=== PATIENT | male | born 1990 | race Caucasian/White ===

== ENCOUNTER 2022-06-17 22:31 | Inpatient (IN) ==
[2022-06-17] MEDS ORDERED: ALUMINUM/MAGNESIUM SUSP 30 ML UDC PO STA (22:38)
--- NOTE | 2022-06-17 22:39 | Emergency Department Note ---
Impression & Plan Chest pain, COVID-19, Gall stones, Acute cholecystitis ED Provider Note NAME: KARTHIKEYAN [id number] MARY AGE: 32 SEX: M : 1990 ARRIVES VIA: Ambulance INFORMANT: Patient, ED PROVIDER(S): Gilmer Hare DO CHIEF COMPLAINT: Chest pain HPI: The patient is a 32-year-old male who presented to the emergency department for an evaluation of chest pain. The patient states that for the last 2 to 3 days he has had URI symptoms including cough and headache. The patient states he started noticing chest discomfort this evening approximately 2 hours ago. He states he has a slight cough which is nonproductive. He denies having any he moptysis. He denies having any black or bloody bowels. He denies having any abdominal pain. He states that he has had some nausea. He said no sick contacts as far as he knows. He has been taking all his medications as prescribed. He does have a history of hypertension. The patient was given a spirin and nitroglycerin at the [facility]. He states he had no change in the pain. ROS: See above HPI for pertinent positives & negatives. A total of 10 systems reviewed and were otherwise negative. PAST MEDICAL HISTORY: See Below PAST SURGICAL HISTORY: See Below FAMILY HISTORY: See Below SOCIAL HISTORY: See Below HOME MEDICATIONS: See Below ALLERGIES: See Below VITALS: See Below PHYSICAL EXAMINATION: GENERAL: Patient is awake alert in no acute distress patient is resting comfortably and showing no signs of anxiety EYES: The conjunctivae are clear. The pupils are round and reactive. EARS, NOSE, MOUTH AND THROAT: The nose is without any evidence of any deformity. Mucous membranes are moist. Tongue is midline. NECK: The neck is nontender and supple. RESPIRATORY: Normal respiratory effort is noted there is no evidence of wheezing rhonchi or rales CARDIOVASCULAR: Regular rate and rhythm noted there no murmurs rubs or gallops normal S1 normal S2. GASTROINTESTINAL: The abdomen is soft and nondistended. There is tenderness palpation over the upper abdomen as well as the lower chest wall. The patient states this is the pain that brought him to the emergency department today. MUSCULOSKELETAL/EXTREMITIES: There is no evidence of gross deformity full range of motion is noted in the hips and shoulders. SKIN: There is no obvious evidence of any rash. There are no petechiae, pallor or cyanosis noted. There is no calf tenderness. NEUROLOGIC: Patient is awake alert and oriented x3 strength is symmetric patellar reflexes are 2+ bilaterally MEDICAL DECISION MAKING: Patient is a 32-year-old male who presented to the emergency department for an evaluation of chest pain. The patient was found to have an elevated temperature. His cardiac work-up did not appear to be consistent with acute coronary syndrome with no acute ischemic changes on EKG and a negative troponin. He was found to have abdominal pain as well on physical exam. I discussed the patient's laboratory and radiographic studies with him. CT of the chest abdomen pelvis were obtained without contrast. The chest showed no acute disease ho wever the abdomen did appear to be consistent with cholecystitis. He did have a slight elevation in his bilirubin but otherwise LFTs were normal. Given the patient's presentation I discussed this case with the on-call [facility] hospitalist. The on-call general surgeon was also consulted. Patient was treated with IV antibiotics in the emergency department. Triage Nursing notes reviewed. Prior medical records reviewed Vital Signs: reviewed and remarkable for elevated blood pressure. Differential diagnosis: Cardiac ischemia, aortic dissection, pulmonary embolism, pneumothorax, pneumonia, pericarditis, myocarditis, esophageal rupture, GERD, cholecystitis, pancreatitis, musculoskeletal, as well as other pathologies. ER treatment provided: See below Diagnostics interpreted by me: ECG: EKG was obtained in the emergency department. My interpretation is normal sinus rhythm at 84 bpm. There is no ectopy. There is no acute ST segment abnormalities noted. No previous tracing was available. An EKG from the [facility] was evaluated. This appears to be consistent with n ormal sinus rhythm at 86 bpm. There were some baseline artifact however there was no acute ST segment abnormalities noted. There is no ectopy. A prehospital EKG was obtained prior to arrival. My interpretation is normal sinus rhythm at 84 bpm. There is no ectopy. There is no acute ST segment a bnormalities noted. Cardiac Monitoring: An order was placed for continuous cardiac monitoring. The monitor shows a rate of 83 bpm with sinus rhythm. Laboratory studies: [As stated above and show below.] Imaging studies: [See below] Consultation(s): I discussed this case with Dr Brandon Discussed this case with Dr. Ware on-call for general surgery. Past Med/Surg History Medical History Hypertension Surgical History History of appendectomy Social History Smoking Status: Former smoker Preferred Language: Prydeinig Results & Data (ED) Vital Signs Vital Signs - 24 hr 06/17/22 22:18 06/17/22 22:44 06/17/22 22:50 Temperature 37.8 C H Temperature Source Oral Pulse Rate 85 Respiratory Rate 20 Blood Pressure 180/108 H Blood Pressure Mean 132 Pulse Oximetry 98 97 97 Oxygen Delivery Method Room Air Room Air Room Air Sepsis Recent Fever Within 48 Hours No Sepsis New/Unexplained Change in Mental Status No Sepsis Action Taken by Nursing No Action Required 06/17/22 23:00 06/17/22 23:30 06/18/22 00:03 Temperature Temperature Source Pulse Rate 84 85 84 Respiratory Rate 20 20 20 Blood Pressure 201/103 H 211/105 H 181/107 H Blood Pressure Mean 135 140 131 Pulse Oximetry 96 97 97 Oxygen Delivery Method Sepsis Recent Fever Within 48 Hours Sepsis New/Unexplained Change in Mental Status Sepsis Action Taken by Nursing 06/18/22 00:30 06/18/22 01:00 06/18/22 01:30 Temperature Temperature Source Pulse Rate 83 83 82 Respiratory Rate 20 20 18 Blood Pressure 177/100 H 175/99 H 168/98 H Blood Pressure Mean 125 124 121 Pulse Oximetry 98 97 97 Oxygen Delivery Method Sepsis Recent Fever Within 48 Hours Sepsis New/Unexplained Change in Mental Status Sepsis Action Taken by Group Home Medications Current Medication List: was personally reviewed by me Laboratory Data Attestation: I reviewed the patient's lab results. Result diagrams: 06/17/22 22:45 06/17/22 22:45 Lab Results 06/17/22 06/17/22 06/17/22 Range/Units 22:45 22:45 22:45 WBC 6.38 (4.8-10.8) K/ul RBC 5.24 (4.63-6.08) M/uL Hgb 15.8 (14.0-18.0) g/dl Hct 43.8 (40.1-51.0) % MCV 83.6 (80.0-100.0) fL MCH 30.2 (25.0-34.0) pg MCHC 36.1 H (32.0-36.0) g/dL RDW Std Deviation 35.8 L (36.4-46.3) fL RDW Coeff of Bipin 11.9 (11.5-14.5) % Plt Count 151 (130-400) K/uL MPV 10.1 (9.4-12.4) fL Immature Gran % (Auto) 0.2 % Neut % (Auto) 75.0 % Lymph % (Auto) 10.7 % [place] % (Auto) 13.6 % Eos % (Auto) 0.3 % Baso % (Auto) 0.2 % Neut # (Auto) 4.79 (1.4-6.5) K/uL Lymph # (Auto) 0.68 L (1.2-3.4) K/uL [place] # (Auto) 0.87 H (0.24-0.82) K/uL Eos # (Auto) 0.02 (0-0.50) K/uL Baso # (Auto) 0.01 (0-0.2) K/uL Immature Gran # (Auto) 0.01 (0.00-0.02) K/uL PT 10.4 (9.0-12.0) Seconds INR 1.0 (0.9-1.1) APTT 30.1 (21.0-31.0) Seconds PTT Ratio 1.1 Sodium 136 (136-145) mmol/L Potassium 3.8 (3.5-5.1) mmol/L Chloride 102 (98-107) mmol/L Carbon Dioxide 26 (21-32) mmol/L Anion Gap 8 (3-11) BUN 16 (6-23) mg/dl Creatinine 0.98 (0.6-1.4) mg/dl Est Cr Clr Drug Dosing 151.5 ml/min Est GFR ( Amer) 116.9 ml/min Est GFR (Non-Af Amer) 100.9 ml/min BUN/Creatinine Ratio 16.3 (10-20) Glucose 128 H (70-99(Fasting)) mg/dl Calcium 8.7 (8.5-10.1) mg/dl Total Bilirubin 1.1 H (0.2-1.0) mg/dl AST 21 (13-39) U/L ALT 18 (7-52) U/L Alkaline Phosphatase 65 (34-104) U/L Troponin I High Sens 4.8 (0-20) pg/ml Total Protein 7.4 (6.0-8.3) gm/dl Albumin 4.4 (3.4-5.0) gm/dl Globulin 3.0 (2.5-4.0) gm/dl Albumin/Globulin Ratio 1.5 (0.9-2) Lipase 20 (11-82) U/L SARS-CoV-2 (PCR) (Negative) Influenza Type A (PCR) (Neg) Influenza Type B (PCR) (Neg) RSV (RT-PCR) (Neg) 06/17/22 Range/Units 22:50 WBC (4.8-10.8) K/ul RBC (4.63-6.08) M/uL Hgb (14.0-18.0) g/dl Hct (40.1-51.0) % MCV (80.0-100.0) fL MCH (25.0-34.0) pg MCHC (32.0-36.0) g/dL RDW Std Deviation (36.4-46.3) fL RDW Coeff of Bipin (11.5-14.5) % Plt Count (130-400) K/uL MPV (9.4-12.4) fL Immature Gran % (Auto) % Neut % (Auto) % Lymph % (Auto) % [place] % (Auto) % Eos % (Auto) % Baso % (Auto) % Neut # (Auto) (1.4-6.5) K/uL Lymph # (Auto) (1.2-3.4) K/uL [place] # (Auto) (0.24-0.82) K/uL Eos # (Auto) (0-0.50) K/uL Baso # (Auto) (0-0.2) K/uL Immature Gran # (Auto) (0.00-0.02) K/uL PT (9.0-12.0) Seconds INR (0.9-1.1) APTT (21.0-31.0) Seconds PTT Ratio Sodium (136-145) mmol/L Potassium (3.5-5.1) mmol/L Chloride (98-107) mmol/L Carbon Dioxide (21-32) mmol/L Anion Gap (3-11) BUN (6-23) mg/dl Creatinine (0.6-1.4) mg/dl Est Cr Clr Drug Dosing ml/min Est GFR ( Amer) ml/min Est GFR (Non-Af Amer) ml/min BUN/Creatinine Ratio (10-20) Glucose (70-99(Fasting)) mg/dl Calcium (8.5-10.1) mg/dl Total Bilirubin (0.2-1.0) mg/dl AST (13-39) U/L ALT (7-52) U/L Alkaline Phosphatase (34-104) U/L Troponin I High Sens (0-20) pg/ml Total Protein (6.0-8.3) gm/dl Albumin (3.4-5.0) gm/dl Globulin (2.5-4.0) gm/dl Albumin/Globulin Ratio (0.9-2) Lipase (11-82) U/L SARS-CoV-2 (PCR) POSITIVE A* (Negative) Influenza Type A (PCR) Negative (Neg) Influenza Type B (PCR) Negative (Neg) RSV (RT-PCR) Negative (Neg) Administered Medications Cefoxitin Sodium (Mefoxin) 2,000 mg in 60 mls @ 100 mls/hr IV NOW STA Stop: 06/18/22 01:40 Last Admin: 06/18/22 01:29 Dose: 100 mls/hr Documented By: MELISSA Discontinued Medications Al Hydrox/Mg Hydrox/Simethicone (Aluminum/Magnesium Susp 30 Ml Udc) 30 ml PO NOW STA Stop: 06/17/22 22:39 Last Admin: 06/17/22 23:13 Dose: 30 ml Documented By: MELISSA Imaging Data Attestation: I personally reviewed and interpreted this imaging study as follows: My Impression: No death1 view chest x-ray was obtained in the emergency department. My interpretation is an infiltrate, no free air, there was shadowing of gastric air noted in the left upper quadrant which could be into the left chest. CT of the chest abdomen and pelvis will be obtained. Radiologist's Impression: Patient: KARTHIKEYAN HERNANDEZ [id number] (Male) : 88 Status: ER Date: 06/18/22 00:14 Room #: History: PT. REPORTS UPPER ABDOMINAL PAIN THAT RADIATES INTO LOW STERNAL CHEST PAIN APPENDIX NOT PRESENT Slices: [phone] Priors: Tech: Jahaira Law @ [phone] Exams: CT ABDOMEN & PELVIS Without Contrast Contrast: Accession Numbers: [id number] Referring Physician: JOCELYN PETIT Preliminary Findings Only See Final Report For Complete Findings CT ABDOMEN & PELVIS Without Contrast: Please see chest CT also today regarding thoracic findings Gallstone within mildly distended gallbladder and surrounding fat stranding. Findings may represent acute cholecystitis. No obvious biliary dilation. Pancreas appears normal. No obstructing urinary tract calculus or hydronephrosis. A normal-appearing short retrocecal appendix or appendiceal stump is visualized. Somewhat limited evaluation of the colon with areas of nondistention. No free air, free fluid or bowel obstruction. Small fat-containing umbilical and inguinal hernias Radiologist: Yuli Perez M.D. Study ready at 00:24 and initial results transmitted at 01:01 Patient: KARTHIKEYAN HERNANDEZ [id number] (Male) : 88 Status: ER Date: 06/18/22 00:12 Room #: History: PT. REPORTS UPPER ABDOMINAL PAIN THAT RADIATES INTO LOW STERNAL CHEST PAIN Slices: [phone] Priors: Tech: Jahaira Law @ [phone] C Exams: CT CHEST Without Contrast Contrast: Accession Numbers: [id number] Referring Physician: JOCELYN PETIT Preliminary Findings Only See Final Report For Complete Findings CT CHEST Without Contrast: Please see CT abdomen pelvis also today for abdominal findings. No aortic aneurysm. Limited evaluation on noncontrast study. Variant anatomy: aberrant right subclavian artery Lungs clear No fracture or other significant bony abnormality Radiologist: Yuli Perez M.D. Study ready at 00:21 and initial results transmitted at 00:58 Discharge Plan Visit Data Chief Complaint: Chest Pain ED Provider: Gilmer Hare Discharge Problem: Chest pain, COVID-19, Gall stones, Acute cholecystitis Patient Disposition: Being Evaluated by Hospitalist Condition: Good Discharge Instructions Krames/Other Patient Handouts: COVID-19 Home Care Activity Restrictions/Additional Instructions: Continue all medications as prescribed. Continue to use Motrin and Tylenol directed for fever and pain. Your CAT scan did show that you may have some gallstones. I do not feel this is causing your pain this evening but you may require referral to a general surgeon in the future to evaluate this finding further. Continue to isolate and keep yourself away from other people until your symptoms have resolved. Forms Stand Alone Forms: My [facility] Referrals Referrals: Jocelyn PETIT [Primary Care Provider] - : Chest pain Qualifiers: Chest pain type: unspecified Qualified Code(s): R07.9 - Chest pain, unspecified
[2022-06-17 22:58] LABS: Basophils # (auto) 0.01 K/uL (0-0.2); Basophils % (auto) 0.2 %; Eosinophils # (auto) 0.02 K/uL (0-0.50); Eosinophils % (auto) 0.3 %; Hematocrit (blood only) 43.8 % (40.1-51.0); Hemoglobin 15.8 g/dl (14.0-18.0); Immature Granulocytes # (auto) 0.01 K/uL (0.00-0.02); Immature Granulocytes % (auto) 0.2 %; Lymphocytes # (auto) 0.68 K/uL (1.2-3.4); Lymphocytes % (auto) 10.7 %; Mean Corpuscular Hemoglobin 30.2 pg (25.0-34.0); Mean Corpuscular Hgb Conc 36.1 g/dL (32.0-36.0); Mean Corpuscular Volume 83.6 fL (80.0-100.0); Mean Platelet Volume 10.1 fL (9.4-12.4); Monocytes # (auto) 0.87 K/uL (0.24-0.82); Monocytes % (auto) 13.6 %; Neutrophils # (auto) 4.79 K/uL (1.4-6.5); Platelet Count 151 K/uL (130-400); RDW Coefficient of Variation 11.9 % (11.5-14.5); RDW Standard Deviation 35.8 fL (36.4-46.3); Red Blood Count 5.24 M/uL (4.63-6.08); White Blood Count 6.38 K/ul (4.8-10.8)
[2022-06-17 23:17] LABS: Albumin Globulin Ratio 1.5 (0.9-2); Albumin Level 4.4 gm/dl (3.4-5.0); BUN Creatinine Ratio 16.3 (10-20); Bilirubin,Total 1.1 mg/dl (0.2-1.0); Calcium 8.7 mg/dl (8.5-10.1); Creatinine Clr Calc Pharmacy 151.5 ml/min; Est GFR (African American) 116.9 ml/min; Est GFR (Non-African American) 100.9 ml/min; Potassium 3.8 mmol/L (3.5-5.1); Total Protein 7.4 gm/dl (6.0-8.3)
[2022-06-17 23:23] LABS: Troponin I High Sensitivity 4.8 pg/ml (0-20)
[2022-06-17 23:25] LABS: Partial Thromboplastin Ratio 1.1; Partial Thromboplastin Time 30.1 Seconds (21.0-31.0); Prothrombin Time 10.4 Seconds (9.0-12.0)
[2022-06-17 23:43] LABS: Influenza A virus by PCR Negative (Neg); Influenza B virus by PCR Negative (Neg); RSV by PCR Negative (Neg)
[2022-06-17 23:46] LABS: SARS CoV2 RNA(COVID-19) InHosp POSITIVE (Negative)
[2022-06-18] MEDS ORDERED: cefOXitin 2,000 MG/60 ML BAG IV STA (01:05)
--- NOTE | 2022-06-18 02:16 | Surgery Consultation ---
Date of Consultation June 18, 2022 Assessment & Plan (1) Gall stones: pt is a 32 year-old male who presents to ER with cough chest pain, pt had CT scan- gallstone, IMP: gallstone, COVID+ plan, medicine admit pt to hospital, conservative treatment, please order MRCP, consult GI, repeat labs in morning, no emergent surgery indication now, will F/U, History of Present Illness Reason for Consultation: gallstone Requesting Physician: Gilmer Hare DO History of Present Illness CHIEF COMPLAINT: Chest pain HPI: The patient is a 32-year-old male who presented to the emergency department for an evaluation of chest pain. The patient states that for the last 2 to 3 days he has had URI symptoms including cough and headache. The patient states he started noticing chest discomfort this evening approximately 2 hours ago. He states he has a slight cough which is nonproductive. He denies having any hemoptysis. He denies having any black or bloody bowels. He denies having any abdominal pain. He states that he has had some nausea. He said no sick contacts as far as he knows. He has been taking all his medications as prescribed. He does have a history of hypertension. The patient was given aspirin and nitroglycerin at the [facility]. He states he had no change in the pain. I ( Natasha Ware MD) got a call for consult gallstone, I reviewed pt's H/P, labs, CT scan with pt, ROS: See above HPI for pertinent positives & negatives. A total of 10 systems reviewed and were otherwise negative. Allergies Allergy/AdvReac Type Severity Reaction Status Date / Time No Known Allergies Allergy Unverified 06/18/22 01:59 Home Medications Medication Instructions Recorded Confirmed Type metoprolol tartrate 25 mg tablet 25 mg PO BID 06/18/22 06/18/22 History Patient History Medical History Hypertension Surgical History History of appendectomy Social History Smoking Status: Former smoker Preferred Language: Lao Review of Systems Constitutional: as per Subjective / HPI Eyes: as per Subjective / HPI Respiratory: as per Subjective / HPI Cardiovascular: as per Subjective / HPI Gastrointestinal: as per Subjective / HPI Genitourinary: + as per Subjective / HPI Neurologic: as per Subjective / HPI Psychiatric: as per Subjective / HPI Endocrine: as per Subjective / HPI Hematologic / Lymphatic: as per Subjective / HPI Physical Exam Constitutional: WD/WN, vitals as above no distress Eyes: PERRL, conjunctivae normal, anicteric sclerae Neck: trachea midline, no thyromegaly Respiratory: normal respiratory effort, lungs clear to auscultation Cardiovascular: RRR, no murmur, no edema Gastrointestinal (Abdomen): soft, mild tenderness at upper abdomen, left and right side, no rebound pain, no distend, BS +, Musculoskeletal: no cyanosis or clubbing, extremities motor strength 5/5 Neurologic: patellar DTR's 2+ bilat, sensation intact Psychiatric: A+Ox3, euthymic affect Results & Data ([facility]) Vital Signs (Past 12 Hours) Vital Signs Temp Pulse Resp BP Pulse Ox O2 Del Method 06/18/22 01:30 82 18 168/98 H 97 06/18/22 01:00 83 20 175/99 H 97 06/18/22 00:30 83 20 177/100 H 98 06/18/22 00:03 84 20 181/107 H 97 06/17/22 23:30 85 20 211/105 H 97 06/17/22 23:00 84 20 201/103 H 96 06/17/22 22:50 97 Room Air 06/17/22 22:44 97 Room Air 06/17/22 22:18 37.8 C H 85 20 180/108 H 98 Room Air Laboratory Results Abnormal lab results 06/17/22 06/17/22 06/17/22 Range/Units 22:45 22:45 22:50 MCHC 36.1 H (32.0-36.0) g/dL RDW Std Deviation 35.8 L (36.4-46.3) fL Lymph # (Auto) 0.68 L (1.2-3.4) K/uL [place] # (Auto) 0.87 H (0.24-0.82) K/uL Glucose 128 H (70-99(Fasting)) mg/dl Total Bilirubin 1.1 H (0.2-1.0) mg/dl SARS-CoV-2 (PCR) POSITIVE A* (Negative) Diagnostic Findings CT scan- gallstone
[2022-06-18] MEDS ORDERED: NITROGLYCERIN SL 0.4 MG/TAB TAB SL PRN (03:15)
[2022-06-18] MEDS ORDERED: HYDROmorphone INJ 0.5 MG/0.5 ML SYR IV PRN (03:15)
[2022-06-18] MEDS ORDERED: ACETAMINOPHEN 325 MG TAB PO PRN (03:15)
[2022-06-18] MEDS ORDERED: ONDANSETRON INJ 2 MG/ML 2 ML VIAL IV PRN (03:15)
[2022-06-18] MEDS ORDERED: PIPERACILLIN/TAZOBACTAM 4.5 GM in DEXTROSE 5% 100 ML IV ONE (03:30)
--- NOTE | 2022-06-18 06:13 | History and Physical Report ---
DATE OF ADMISSION: 06/18/2022. CHIEF COMPLAINT: Lower chest pain and abdominal pain. HISTORY OF PRESENT ILLNESS: A 32-year-old male with past medical history significant for hypertension, [facility] the [facility] with lower chest pain and epigastric abdominal pain starting tonight. Radiating pain to both shoulders and neck. It was 8/10 in severity and currently is 5/10. Nothing made it better or worse. No shortness of breath, no nausea, no headache, no blurred visions, no earache. Has some runny nose and cough for the last 2 days, had some mild temperature spike in the ER. No diarrhea or constipation. Normal bladder movements. Otherwise, he is ambulating okay. ALLERGIES: No known drug allergies. PAST MEDICAL HISTORY: As mentioned above. PAST SURGICAL HISTORY: Appendectomy. MEDICATIONS: Metoprolol tartrate 25 mg p.o. b.i.d. FAMILY HISTORY: Not on file. SOCIAL HISTORY: He states he smoked, last he smoked was in January. Last drank alcohol in January. Denies any drug use. REVIEW OF SYSTEMS: As per HPI. Rest of review of systems is negative. PHYSICAL EXAMINATION: GENERAL: The patient is obese, not in acute distress. VITAL SIGNS: Temperature 37.8, pulse 87, respiratory rate 18, blood pressure 166/97, oxygen 97% on room air. HEENT: Pupils equal, round and reactive to light. Oral mucosa moist. NECK: No JVD. No neck masses. CARDIOVASCULAR: S1 and S2 heard. Regular rate and rhythm. No murmur, no gallop. RESPIRATORY SYSTEM: Normal AP diameter. No accessory muscle use. No wheezing, no crackles. ABDOMEN: Soft, bowel sounds present. Tenderness in the epigastrium and right upper quadrant region. Mild guarding. No rigidity, no distention. CENTRAL NERVOUS SYSTEM: Cranial nerves II through XII are grossly intact, nonfocal. EXTREMITIES: No edema, no erythema. LABORATORY DATA: WBC 6.3, hemoglobin 15.8, hematocrit 43.8, platelets 151. PT 10.4, INR 1, APTT 30.1. Sodium 136, potassium 3.8, chloride 102, bicarbonate 26, BUN 16, creatinine 0.9, serum glucose 128, calcium 8.7, total bilirubin 1.1, AST 21, ALT 18, alkaline phosphatase 65. Troponin I high sensitivity 4.8. Lipase 20. SARS-CoV-2 PCR positive. Influenza A and B PCR negative. RSV PCR negative. Chest CT, preliminary report unremarkable. IMAGING DATA: CT of abdomen and pelvis, gallstones with a mildly distended gallbladder. Findings may represent acute cholecystitis. EKG: Normal sinus rhythm at a rate of 84, no previous ECGs available, no acute ST changes seen. ASSESSMENT AND PLAN: This is a 32-year-old male who presents with lower chest and abdominal pain and found to have acute cholecystitis and COVID. 1. Acute gallstone cholecystitis, started on Zosyn, IV fluids, n.p.o., IV Dilaudid p.r.n., IV Zofran p.r.n. ER consulted surgery. Monitor in the hospital. 2. Chest pain, most likely coming from the cholecystitis. We will follow serial enzymes and EKG. 3. History of hypertension: Continue metoprolol. 4. COVID, currently saturating okay on room air. CT chest preliminary report with no obvious lesions. We will monitor. The patient is unvaccinated. 5. Deep venous thrombosis prophylaxis: Sequential compression devices for now as may need procedure for cholecystitis. DISPOSITION: Admit to [facility]. PT/OT prior to discharge. Social service to help with discharge planning. Discharge back to [facility] when stable. Job ID: [id number] [facility]
[2022-06-18 07:18] LABS: Basophils # (auto) 0.01 K/uL (0-0.2); Basophils % (auto) 0.2 %; Eosinophils # (auto) 0.01 K/uL (0-0.50); Eosinophils % (auto) 0.2 %; Hematocrit (blood only) 42.2 % (40.1-51.0); Hemoglobin 15.3 g/dl (14.0-18.0); Immature Granulocytes # (auto) 0.02 K/uL (0.00-0.02); Immature Granulocytes % (auto) 0.4 %; Lymphocytes # (auto) 0.92 K/uL (1.2-3.4); Mean Corpuscular Hemoglobin 29.7 pg (25.0-34.0); Mean Corpuscular Hgb Conc 36.3 g/dL (32.0-36.0); Mean Corpuscular Volume 81.8 fL (80.0-100.0); Mean Platelet Volume 9.8 fL (9.4-12.4); Monocytes # (auto) 0.77 K/uL (0.24-0.82); Monocytes % (auto) 15.9 %; Neutrophils % (auto) 64.3 %; Platelet Count 142 K/uL (130-400); RDW Coefficient of Variation 11.9 % (11.5-14.5); RDW Standard Deviation 35.3 fL (36.4-46.3); Red Blood Count 5.16 M/uL (4.63-6.08); White Blood Count 4.83 K/ul (4.8-10.8)
[2022-06-18 07:38] LABS: Calcium 8.6 mg/dl (8.5-10.1); Creatinine Clr Calc Pharmacy 175.9 ml/min; Est GFR (African American) 132.1 ml/min; Est GFR (Non-African American) 113.9 ml/min; Potassium 3.5 mmol/L (3.5-5.1)
--- NOTE | 2022-06-18 07:59 | XRay Report ---
XR chest 1V portable CLINICAL HISTORY: Chest Pain TECHNIQUE: Single frontal radiograph of the chest was obtained. Comparison: None available at the time of this dictation. FINDINGS: No lines and tubes are seen. The cardiomediastinal silhouette is normal. The lungs are clear. No evid ence of pleural effusion or pneumothorax. IMPRESSION: No acute chest disease. ACT 112: Negative or not required by law. Electronically signed by: Gio Morris M.D. 06/18/2022 7:57 AM
--- NOTE | 2022-06-18 08:21 | CT Scan Report ---
CT abd pelvis wo con CLINICAL HISTORY: epigastric pain TECHNIQUE: Helical axial images of the abdomen and pelvis were obtained. Automated dose lowering tech niques and/or adjustment according to patient size were utilized for this exam. This exam was perfor med without intravenous contrast. CT DOSE: 2397.45 mGy.cm COMPARISON: None available at the time of this dictation. FINDINGS: Lower chest: For findings above the diaphragm, please see CT chest performed same day. Liver: Unremarkable. No focal lesions are seen. Gallbladder and biliary tree: A radiodense gallstone is partially visualized. There is gallbladder wa ll edema, and the wall measures approximately 6 mm in diameter. Surrounding fat stranding is seen. No intra- or extrahepatic biliary ductal dilation. Pancreas: Unremarkable, no focal lesions. Spleen: Splenule is incidentally noted. Adrenals: Unremarkable. Kidneys and ureters: Unremarkable. Bladder: Unremarkable. Reproductive organs: Unremarkable. Bowel: Unremarkable appearance of the bowel. The appendix is normal. Lymph nodes Retroperitoneal: Unremarkable. Pelvic: Unremarkable. Mesenteric: Unremarkable. Peritoneum: Normal. Vessels: Unremarkable. Abdominal wall: A fat-containing umbilical hernia is seen. Left greater than right fat-containing ing uinal hernias are seen. Bones: Unremarkable. IMPRESSION: Findings are compatible with acute cholecystitis. ACT 112: Negative or not required by law. Electronically signed by: Gio Morris M.D. 06/18/2022 8:20 AM
--- NOTE | 2022-06-18 08:34 | CT Scan Report ---
CT chest diagnostic wo con CLINICAL HISTORY: 32 years-old Male with upper pain. Acute lower chest with upper abdominal pain TECHNIQUE: Multiaxial CT images of the chest were performed without contrast. A dose lowering techni que was utilized adhering to the principles of ALARA. COMPARISON: CT abdomen and pelvis of same day FINDINGS: Unremarkable thyroid. There is no lymphadenopathy. The heart is normal in size without jazmyn cardial effusion. There is no thoracic aortic aneurysm. 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 No pneumothorax, pleural effusion, airspace consolidation or overt pulmonary edema. There are no susp icious pulmonary nodules or masses. The central airways are patent. Cholelithiasis with gallbladder wall thickening and pericholecystic fluid. The spleen limits of jay jay l in size. Unremarkable soft tissues. No acute fracture. IMPRESSION: 1. No acute intrathoracic abnormality. 2. Cholelithiasis with findings compatible with acute cholecystitis. ACT 112: Negative or not required by law. Electronically signed by: Marcelo Donaldson M.D. 06/18/2022 8:33 AM
[2022-06-18] MEDS: METOPROLOL TARTRATE 25 MG TAB PO SCH ×2 (08:58→21:04)
[2022-06-18] MEDS: PIPERACILLIN/TAZOBACTAM 4.5 GM in DEXTROSE 5% 100 ML IV SCH ×2 (08:58→18:11)
--- NOTE | 2022-06-18 09:11 | XRay Report ---
XR orbits for MRI HISTORY: 32 years-old Male Screening for foreign body for MRI screening for MRI COMPARISON: None TECHNIQUE: 3 views of the orbits FINDINGS: Partial opacification of the right nasal turbinates/ethmoid air cells. Prior dental extractions. No a cute facial bone fracture identified. No opaque foreign body of the orbits. IMPRESSION: No opaque foreign body of the orbits. ACT 112: Negative or not required by law. The above report was generated using voice recognition software. It may contain grammatical, syntax o r spelling errors. Electronically signed by: Marcelo Donaldson M.D. 06/18/2022 9:10 AM
--- NOTE | 2022-06-18 11:32 | Gastrointestinal Consultation ---
Date of Consultation June 18, 2022 Assessment & Plan (1) Acute cholecystitis: (2) Gall stones: (3) COVID-19: Patient is a 32 years old male inmate presenting with upper abdominal pain, mild elevation of his bilirubin noted to have signs of cholecystitis and gallstone without biliary ductal dilatation on non contrasted CT scan. He is also COVID 19 +. - NPO - Obtain MRCP, to r/o choledocholithiasis - Surgery following, appreciate recs - Trend LFTs - Antibiotics and IVF support per primary team Supervising Physician Co-Signing Physician Notes I have personally seen and examined the patient with MAGALI Ngo. Her note reflects my exam and findings. I agree with her impression and plan. Await MRCP results. No obvious need for GI intervention at this point. Brian Miller M.D. History of Present Illness Reason for Consultation: Cholecystitis, elevated total bilirubin Requesting Physician: Dr. Joss Navas Attending Physician: Dr. Brian Miller History of Present Illness Patient is a 32 years old male inmate who presented yesterday with complaints of upper abdominal pain radiating to shoulders started last night. It happened after dinnertime. He has associated chills, no nausea or vomiting nor bowel habit changes. Past medical history include hypertension, he takes Lopressor daily. Upon evaluation he was found to be COVID-positive. No signs of leukocytosis, LFTs with mild elevation of total bilirubin at 1.1, rest of enzymes are normal along with normal lipase. CT abdomen and pelvis without contrast showed signs of cholecystitis with cholelithiasis but no signs of biliary dilatation. He is scheduled for an MRCP this morning. Allergies Allergy/AdvReac Type Severity Reaction Status Date / Time No Known Allergies Allergy Unverified 06/18/22 01:59 Home Medications Medication Instructions Recorded Confirmed Type metoprolol tartrate 25 mg tablet 25 mg PO BID 06/18/22 06/18/22 History Patient History Medical History Hypertension Surgical History History of appendectomy Social History Smoking Status: Former smoker Hx Alcohol Use: No Hx Substance Use: No Preferred Language: Hungarian Communication Ability: Effective Security Incident Handler Required: No Beliefs That Will Affect Care: None Current Living Situation: Other Current Living Situation Comment: inmate Feels Safe at Home: Yes Safety Concerns: Feels Safe At This Time Assistive Devices: None Review of Systems Review of Systems: All systems reviewed & are unremarkable except as noted in HPI & below Physical Exam Constitutional: WD/WN, vitals as above well groomed, cooperative and comfortable Eyes: PERRL, conjunctivae normal, anicteric sclerae ENMT: external ear and nose normal, oropharynx normal Respiratory: normal respiratory effort, lungs clear to auscultation Cardiovascular: RRR, no murmur, no edema Gastrointestinal (Abdomen): Soft, hypoactive bowel sounds, right upper quadrant tenderness on palpation Skin: no rashes, warm and dry no jaundice Psychiatric: A+Ox3, euthymic affect Lymphatic: no lymphedema Results & Data ([facility]) Vital Signs (Past 12 Hours) Vital Signs Temp Pulse Pulse Resp BP BP Pulse Ox 06/18/22 08:00 36.8 C 89 18 144/88 H 96 06/18/22 05:30 81 20 153/94 H 96 06/18/22 05:00 06/18/22 04:00 37.0 C 100 H 18 168/103 H 95 06/18/22 03:30 82 20 187/102 H 96 06/18/22 03:00 84 18 189/110 H 99 06/18/22 02:00 87 18 166/97 H 97 06/18/22 01:30 82 18 168/98 H 97 06/18/22 01:00 83 20 175/99 H 97 06/18/22 00:30 83 20 177/100 H 98 06/18/22 00:03 84 20 181/107 H 97 06/17/22 23:30 85 20 211/105 H 97 O2 Del Method 06/18/22 08:00 Room Air 06/18/22 05:30 Room Air 06/18/22 05:00 Room Air 06/18/22 04:00 Room Air 06/18/22 03:30 06/18/22 03:00 06/18/22 02:00 06/18/22 01:30 06/18/22 01:00 06/18/22 00:30 06/18/22 00:03 06/17/22 23:30
--- NOTE | 2022-06-18 11:59 | Communication Note ---
Date of Service: June 18, 2022 The patient is a 32 year old man with pmh HTN who presented from [facility] with RUQ abdominal pain since earlier day of admission. Denied n/v, fever or chills. Found to have acute cholecystitis with gall stones present, LFTs including ALP wnl, mild Tbili elevation 1.1. Given IVF and started on zosyn. Surgery consulted without acute intervention. GI consulted, recommend MRCP, NPO for now. The patient reports improvement in his abdominal pain. Denies n/v/d, fever or chills, chest pain or shortness of breath. PHYSICAL EXAMINATION: GENERAL: The patient is obese, not in acute distress. HEENT: Pupils equal, round and reactive to light. Oral mucosa moist. NECK: No JVD. No neck masses. CARDIOVASCULAR: S1 and S2 heard. Regular rate and rhythm. No murmur, no gallop. RESPIRATORY SYSTEM: Normal AP diameter. No accessory muscle use. No wheezing, no crackles. ABDOMEN: Soft, bowel sounds present. Mild tenderness in right upper quadrant region. no guarding. No rigidity, no distention. CENTRAL NERVOUS SYSTEM: Cranial nerves II through XII are grossly intact, nonfocal. EXTREMITIES: No edema, no erythema. Assessment and Plan: Acute cholecystitis - RUQ pain, mild temp to 100, no leukocytosis, LFTs wnl, CT-AP compatible with acute cholecystitis - continue zosyn, IVF - surgery consulted - GI consulted - MRCP ordered - NPO per GI See H&P from today for more detailed plan. Joss Navas MD [facility]
[2022-06-18 12:40] LABS: Albumin Level 4.2 gm/dl (3.4-5.0); Bilirubin Direct 0.2 mg/dl (0-0.2); Bilirubin,Total 1.2 mg/dl (0.2-1.0)
--- NOTE | 2022-06-18 12:44 | Magnetic Resonance Report ---
MR MRCP CLINICAL HISTORY: Cholelithiasis. Evaluate for choledocholithiasis. TECHNIQUE: Multiplanar multisequence MR images were obtained of the abdomen, followed by reconstruct ion of MRCP imaging. COMPARISON: CT of the abdomen and pelvis from 06/17/2022 FINDINGS: Liver: There is homogeneous signal intensity seen within the liver. No mass lesions are seen. There i s no evidence for intrahepatic or duct dilatation. Gallbladder: The gallbladder is again distended with wall thickening and pericholecystic edema. Monique lithiasis is present. Findings are again characteristic of acute cholecystitis. Spleen: There is homogeneous signal throughout the splenic parenchyma. No mass lesions are seen. Pancreas: The pancreas is homogeneous in signal There is no evidence for a mass lesion. Kidneys: There is homogeneous signal throughout the renal parenchyma bilaterally. Adrenal glands: There is homogeneous signal demonstrated with no gross mass seen. Abdominal cavity: There is subhepatic fluid present along the inferior liver margin. The visualized osseous structures, demonstrate no evidence of abnormal signal intensity. MRCP: The common bile duct is normal in course and caliber. There is no evidence for dilatation. Th ere is no intraluminal filling defects or evidence for choledocholithiasis. There is no intrahepatic or duct dilatation. The pancreatic duct is normal in course and caliber. IMPRESSION: 1. No evidence of biliary obstruction. 2. MR findings are again characteristic of acute cholecystitis. ACT 112: Negative or not required by law. Electronically signed by: David Hines M.D. 06/18/2022 12:42 PM
[2022-06-18] MEDS ORDERED: PIPERACILLIN/TAZOBACTAM 4.5 GM/120ML D5W IV ONE (16:44)
--- NOTE | 2022-06-19 05:53 | Electrocardiogram Report ---
Test Reason : Blood Pressure : / mmHG Vent. Rate : 084 BPM Atrial Rate : 084 BPM P-R Int : 156 ms QRS Dur : 090 ms QT Int : 374 ms P-R-T Axes : 050 060 029 degrees QTc Int : 441 ms Poor data quality, interpretation may be adversely affected Normal sinus rhythm Normal ECG No previous ECGs available Confirmed by Stanislaw Perry ([id number]) on 06/19/2022 5:53:30 AM Referred By: Zachary PETIT Confirmed By:Stanislaw Perry
--- NOTE | 2022-06-19 06:24 | Electrocardiogram Report ---
Test Reason : Blood Pressure : / mmHG Vent. Rate : 091 BPM Atrial Rate : 091 BPM P-R Int : 156 ms QRS Dur : 090 ms QT Int : 374 ms P-R-T Axes : 064 072 046 degrees QTc Int : 460 ms Normal sinus rhythm Normal ECG When compared with ECG of 17-JUN-2022 22:38, No significant change was found Confirmed by Stanislaw Perry ([id number]) on 06/19/2022 6:24:14 AM Referred By: Zachary PETIT Confirmed By:Stanislaw Perry
[2022-06-19] MEDS: PIPERACILLIN/TAZOBACTAM 4.5 GM in DEXTROSE 5% 100 ML IV SCH ×2 (07:31)
[2022-06-19] MEDS: METOPROLOL TARTRATE 25 MG TAB PO SCH (08:44)
[2022-06-19] MEDS ORDERED: CHLORASEPTIC 1.4% SOLN 180 ML BTL MT PRN (09:51)
--- NOTE | 2022-06-19 16:47 | Discharge Summary ---
Date of Service June 19, 2022 Discharge Data Allergies Allergy/AdvReac Type Severity Reaction Status Date / Time No Known Allergies Allergy Unverified 06/18/22 01:59 Consultations 06/18/22 01:15 Consult General Surgery Stat 06/18/22 01:24 ED Decision to Admit Stat 06/18/22 06:59 Consult Gastroenterology Routine Ordered Studies 06/17/22 23:25 CT abd pelvis wo con Urgent CT chest diagnostic wo con Urgent 06/18/22 06:59 MR MRCP Urgent Discharge Plan Discharge Items Reason For Visit: LOWER CHEST PAIN / ABD PAIN Condition on Discharge: Good Follow-up/Referrals: Zachary PETIT [Primary Care Provider] - Medications and DC Order Prescriptions: No Action metoprolol tartrate 25 mg Tablet 25 mg PO BID Admission Data Admit Date/Time: 06/18/22 02:44 Attending Provider: Jovanni Abreu Admit Provider: Devon Brandon Primary Care Provider: Zachary PETIT Other Providers: Natasha Ware ; Devon Brandon ; Moises Hill ; Joss Navas
== END 2022-06-19 18:44 | DRG 444 ==
LOC: ED 22:31 → SUATTDRO 06-18 02:44 → EDINP 06-18 02:44 → 2E 06-18 03:58
DX: Z87.891 Personal history of nicotine dependence; U07.1 COVID-19; I10 Essential (primary) hypertension; K80.00 Calculus of gallbladder with acute cholecystitis without obstruction; Z28.310 Unvaccinated for COVID-19

== ENCOUNTER 2024-02-20 23:06 | Inpatient (IN) ==
[2024-02-20] MEDS: ACETAMINOPHEN 1,000 MG/100 ML VIAL IV STA (23:42)
[2024-02-20] MEDS: ONDANSETRON INJ 2 MG/ML 2 ML VIAL IV STA (23:42)
[2024-02-20] MEDS: SODIUM CHLORIDE 0.9% 1,000 ML IV STA (23:45)
[2024-02-21 00:12] LABS: Basophils # (auto) 0.07 K/uL (0.00-0.20); Basophils % (auto) 0.8 %; Eosinophils # (auto) 0.08 K/uL (0.00-0.50); Eosinophils % (auto) 0.9 %; Hematocrit (blood only) 45.1 % (42.0-52.0); Hemoglobin 15.9 g/dl (14.0-18.0); Immature Granulocytes # (auto) 0.03 K/uL (0.01-0.20); Immature Granulocytes % (auto) 0.3 %; Lymphocytes # (auto) 1.65 K/uL (1.20-3.40); Lymphocytes % (auto) 19.1 %; Mean Corpuscular Hemoglobin 29.9 pg (25.0-34.0); Mean Corpuscular Hgb Conc 35.3 g/dL (32.0-36.0); Mean Corpuscular Volume 84.9 fL (80.0-100.0); Mean Platelet Volume 10.1 fL (9.4-12.4); Monocytes # (auto) 0.87 K/uL (0.11-0.59); Neutrophils # (auto) 5.96 K/uL (1.40-6.50); Neutrophils % (auto) 68.9 %; Platelet Count 223 K/uL (130-400); RDW Standard Deviation 36.6 fL (36.4-46.3); Red Blood Count 5.31 M/uL (4.70-6.10); White Blood Count 8.66 K/ul (4.8-10.8)
[2024-02-21 00:23] LABS: Albumin Globulin Ratio 1.8 (0.9-2); Albumin Level 4.8 gm/dl (3.4-5.0); BUN Creatinine Ratio 17.1 (10-20); Bilirubin,Total 1.1 mg/dl (0.2-1.0); Calcium 10.1 mg/dl (8.6-10.3); Est GFR (African American) 99.9 ml/min; Est GFR (Non-African American) 86.2 ml/min; Globulin 2.7 gm/dl (2.5-4.0); Potassium 4.1 mmol/L (3.5-5.1); Total Protein 7.5 gm/dl (6.0-8.3)
--- NOTE | 2024-02-21 00:34 | Ultrasound Report ---
Exam(s): US GALLBLADDER EXAM: US Abdomen Limited, Gallbladder CLINICAL HISTORY: Reason for exam: ruq pain, ? GB. TECHNIQUE: Real-time ultrasound of the right upper quadrant with image documentation. COMPARISON: No relevant prior studies available. FINDINGS: Gallbladder: Numerous gallstones with mild gallbladder distention. No gallbladder wall thickening or pericholecystic fluid. Common bile duct: Common bile duct measures 3.0 mm. No stones. No dilation. Pancreas: Unremarkable as visualized. Right kidney: Right kidney measures 11.8 cm. IMPRESSION: Numerous gallstones with mild gallbladder distention. Electronically signed by: Jameson De Leon M.D. 02/21/24 00:33 AM
--- NOTE | 2024-02-21 00:54 | Emergency Department Note ---
History of Present Illness General Chief complaint: Abdominal Pain Stated complaint: PAIN UNDER RIB/UPPER ABD PAIN Time Seen by Provider: 02/20/24 23:20 History of Present Illness Maximum Pain Intensity: 8 This 33-year-old prisoner presents ER complaining of right upper quadrant pain after eating dinner tonight. Patient denies chest pain, dyspnea, fevers, vomiting, diarrhea, cough, congestion. No rash. He is concerned it could be his gallbladder. Home Medications Medication Instructions Recorded Confirmed Type metoprolol tartrate 25 mg tablet 25 mg PO BID 06/18/22 06/18/22 History acetaminophen 325 mg tablet 650 mg (2 x 325 mg) PO Q6H PRN 06/19/22 Rx pain #30 tabs Allergies Allergy/AdvReac Type Severity Reaction Status Date / Time No Known Allergies Allergy Unverified 06/18/22 01:59 Past Med/Surg History Medical History Gall stones COVID-19 Hypertension Surgical History History of appendectomy Social History Smoking Status: Never smoker Hx Alcohol Use: No Hx Substance Use: No Preferred Language: Lithuanian Communication Ability: Effective Prepress Operator Required: No Beliefs That Will Affect Care: None Current Living Situation: Other Current Living Situation Comment: inmate Feels Safe at Home: Yes Assistive Devices: None Review of Systems A total of 10 systems reviewed and were otherwise negative Physical Exam Vital Signs Vital Signs - 24 hr 02/20/24 23:15 02/20/24 23:30 02/21/24 01:07 Temperature 36.1 C L Temperature Source Oral Pulse Rate 73 80 Pulse Rate [Apical] 80 Pulse Rhythm [Apical] Regular Respiratory Rate 18 18 18 Respiratory Effort / Characteristics Non-Labored Spontaneous Non-Labored Spontaneous Respiratory Depth Normal Normal Respiratory Pattern Regular Regular Blood Pressure 176/126 H Blood Pressure [Left Arm] 109/81 Blood Pressure Mean 142 Blood Pressure Mean [Left Arm] 90 Pulse Oximetry 97 98 99 Oxygen Delivery Method Room Air Room Air Sepsis Recent Fever Within 48 Hours No Sepsis New/Unexplained Change in Mental Status No Sepsis Action Taken by Nursing No Action Required VITALS: Vitals are noted on the nurse's note and reviewed by myself. Vital signs stable. GENERAL: White male in handcuffs, in no acute distress, nondiaphoretic, well- developed well-nourished. SKIN: Capillary reflex less than 2 seconds. HEENT: Normocephalic. PERRLA. EOMI. Nares patent. Mucous membranes moist. Neck is supple without nuchal rigidity. HEART: Regular rate and rhythm LUNGS: Clear to auscultation bilaterally without wheezes, rales or rhonchi. No retractions or accessory muscle use. ABDOMEN: Positive bowel sounds x 4. Normal tympanic percussion. Soft, tender right upper quadrant, without masses or organomegaly. Mcdermott sign +. No guarding or rebound tenderness. no CVA tenderness MUSCULOSKELETAL: No gross musculoskeletal defects. NEURO: Patient was alert and oriented to person place and time. No focal neurological deficits. Course Administered Medications Discontinued Medications Sodium Chloride (Nss) 1,000 mls @ 999 mls/hr IV .Q1H1M STA Stop: 02/21/24 00:30 Last Infusion: 02/21/24 01:00 Dose: Infused Documented By: [facility] Admin: 02/20/24 23:45 Dose: 999 mls/hr Documented By: [facility] Acetaminophen (Ofirmev) 1,000 mg in 100 mls @ 400 mls/hr IV NOW STA Stop: 02/20/24 23:44 Last Infusion: 02/21/24 00:02 Dose: Infused Documented By: [facility] Admin: 02/20/24 23:42 Dose: 400 mls/hr Documented By: [facility] Piperacillin Sod/Tazobactam Sod (Zosyn) 4.5 gm in 100 mls @ 200 mls/hr IV NOW ONE Stop: 02/21/24 01:25 Last Admin: 02/21/24 01:08 Dose: 200 mls/hr Documented By: [facility] Ondansetron HCl (Ondansetron Inj 2 Mg/Ml 2 Ml Vial) 4 mg IV NOW STA Stop: 02/20/24 23:31 Last Admin: 02/20/24 23:42 Dose: 4 mg Documented By: [facility] Medical Decision Making Medical Records Attestation: I reviewed the patient's medical records. Home Medications Current Medication List: was personally reviewed by mi Laboratory Data Attestation: I reviewed the patient's lab results. 02/20/24 Unknown 02/20/24 Unknown Lab Results 02/20/24 Range/Units Unknown WBC 8.66 (4.8-10.8) K/ul RBC 5.31 (4.70-6.10) M/uL Hgb 15.9 (14.0-18.0) g/dl Hct 45.1 (42.0-52.0) % MCV 84.9 (80.0-100.0) fL MCH 29.9 (25.0-34.0) pg MCHC 35.3 (32.0-36.0) g/dL RDW Std Deviation 36.6 (36.4-46.3) fL RDW Coeff of Bipin 12.0 (11.5-14.5) % Plt Count 223 (130-400) K/uL MPV 10.1 (9.4-12.4) fL Immature Gran % (Auto) 0.3 % Neut % (Auto) 68.9 % Lymph % (Auto) 19.1 % [place] % (Auto) 10.0 % Eos % (Auto) 0.9 % Baso % (Auto) 0.8 % Neut # (Auto) 5.96 (1.40-6.50) K/uL Lymph # (Auto) 1.65 (1.20-3.40) K/uL [place] # (Auto) 0.87 H (0.11-0.59) K/uL Eos # (Auto) 0.08 (0.00-0.50) K/uL Baso # (Auto) 0.07 (0.00-0.20) K/uL Immature Gran # (Auto) 0.03 (0.01-0.20) K/uL Sodium 139 (136-145) mmol/L Potassium 4.1 (3.5-5.1) mmol/L Chloride 105 (98-107) mmol/L Carbon Dioxide 25 (21-32) mmol/L Anion Gap 9 (3-11) BUN 19 (6-23) mg/dl Creatinine 1.11 (0.6-1.4) mg/dl Est Cr Clr Drug Dosing 132.0 ml/min Est GFR ( Amer) 99.9 ml/min Est GFR (Non-Af Amer) 86.2 ml/min BUN/Creatinine Ratio 17.1 (10-20) Glucose 112 H (70-99(Fasting)) mg/dl Calcium 10.1 (8.6-10.3) mg/dl Total Bilirubin 1.1 H (0.2-1.0) mg/dl AST 17 (13-39) U/L ALT 14 (7-52) U/L Alkaline Phosphatase 71 (34-104) U/L Total Protein 7.5 (6.0-8.3) gm/dl Albumin 4.8 (3.4-5.0) gm/dl Globulin 2.7 (2.5-4.0) gm/dl Albumin/Globulin Ratio 1.8 (0.9-2) Lipase 17 (11-82) U/L Imaging Data Attestation: I personally reviewed and interpreted this imaging study as follows: Radiologist's Impression: Gallbladder Ultrasound 02/20/24 23:30 Exam(s): US GALLBLADDER EXAM: US Abdomen Limited, Gallbladder CLINICAL HISTORY: Reason for exam: ruq pain, ? GB. TECHNIQUE: Real-time ultrasound of the right upper quadrant with image documentation. COMPARISON: No relevant prior studies available. FINDINGS: Gallbladder: Numerous gallstones with mild gallbladder distention. No gallbladder wall thickening or pericholecystic fluid. Common bile duct: Common bile duct measures 3.0 mm. No stones. No dilation. Pancreas: Unremarkable as visualized. Right kidney: Right kidney measures 11.8 cm. IMPRESSION: Numerous gallstones with mild gallbladder distention. Electronically signed by: Jameson De Leon M.D. 02/21/24 00:33 AM MDM Narrative Prior records/ancillary studies reviewed. Triage Nursing notes reviewed. Additional history obtained from correctional officers. The patient's history was concerning for abdominal pain. Differential diagnosis: Etiologies such as appendicitis, diverticulitis, PUD, biliary pathology, UTI, pancreatitis, obstruction, mesenteric ischemia, aortic pathology, infections, inflammatory bowel disease, renal colic, as well as others were entertained. Physical examination findings: As above. ER treatment provided: An order was placed for continuous cardiac monitoring. The monitor shows a rate of 60-100 with a sinus rhythm per my Independent interpretation. Tylenol, IV fluids, Zosyn On reassessment the patient felt better. Diagnostics interpreted by me: The labs Independently Interpreted by myself revealed no worrisome leukocytosis, bilirubin 1.1. LFTs normal. Imaging studies: Ultrasound as above and concerning for acute Francine cystitis per my independent or potation Consultation: A consultation was placed with the surgical midlevel, Michael. The case was discussed and diagnostics were reviewed. The patient was evaluated in the ER for further treatment. Medicine is consulted and will evaluate the patient for admission. Case was discussed. Exam and history seem consistent with acute cholecystitis. Surgery was consulted and will evaluate the patient. Patient is agreeable. By the evaluation outlined above emergent etiologies such as appendicitis, diverticulitis, PUD, UTI, pancreatitis, obstruction, mesenteric ischemia, aortic pathology, inflammatory bowel disease, renal colic, as well as others were deemed relatively unlikely. The pt informed about the findings as listed above. All questions were answered and pleased with the treatment. The chart was completed utilizing [employer] Speech voice recognition software. Grammatical errors, random word insertions, pronoun errors, and incomplete sentences are an occassional consequence of this system due to software limitations, ambient noise, and hardware issues. Any formal questions or concerns about the content, text, or information contained within the body of this dictation should be directly addressed to the physician psychology assistant for clarification. Impression & Plan Acute cholecystitis Discharge Plan Visit Data Chief Complaint: Abdominal Pain Stated Complaint: PAIN UNDER RIB/UPPER ABD PAIN ED Provider: Marjorie Sullivan ED Midlevel Provider: Hilda Cao Discharge Problem: Acute cholecystitis Patient Disposition: Admitted As Inpatient Condition: Good Forms Stand Alone Forms: [employer] Prescriptions Prescriptions: No Action metoprolol tartrate 25 mg Tablet 25 mg PO BID acetaminophen 325 mg Tablet 650 mg PO Q6H PRN (Reason: pain) Qty: 30 0RF Referrals Referrals: Zachary PETIT [Primary Care Provider] -
[2024-02-21] MEDS: PIPERACILLIN/TAZOBACTAM 4.5 GM/100 ML BAG IV ONE (01:08)
--- NOTE | 2024-02-21 01:21 | Surgery Consultation ---
Date of Consultation February 21, 2024 Assessment & Plan (1) Acute cholecystitis: I discussed with the treating clinician in the emergency department the patient is being admitted on the medical service. From surgical perspective we recommend the following: Implement n.p.o. status Provide IV fluid for hydration Provide analgesics Provide antiemetics Antibiotics in the form of Zosyn have been initiated and he should continue. Will repeat laboratories in the morning of 02/21/2024 I discussed with the patient that he may benefit from cholecystectomy. Decision about whether or not to proceed with surgery will depend on what his repeat laboratories show the morning of 02/21/2024. Patient will be reevaluated Dr. Cardona of [facility] physician group general surgery and a final decision about whether the patient requires surgical invention will be made. Would recommend utilizing only SCDs for DVT prevention, no chemical means till it is ascertained whether or not the patient is going to undergo surgical intervention Addendum (5:30 AM) Since admission to the hospital patient reports little change. He continues to report some right upper quadrant tenderness. He has remained afebrile and hemodynamically stable There is no change on his physical exam from what was noted at time of admission Will continue with plan as outlined above with plans to repeat labs this morning and consideration for cholecystectomy on 02/21/[address] Cardona History of Present Illness Reason for Consultation: Cholelithiasis History of Present Illness This is a 33-year-old male who presented to the emergency department secondary to abdominal pain. The patient notes that he was previously admitted to [facility] in June 2022 where patient experienced similar abdominal pain. During that admission the patient did have imaging performed including a CT scan which was done on 06/17/2022. This showed the patient had visualized gallstones along with gallbladder wall edema with some fat stranding. There is no biliary ductal dilatation but the findings were felt to be consistent with cholecystitis. The patient also underwent an MRCP that admission that showed no evidence of biliary ductal dilatation or choledocholithiasis. The MRCP did show findings characteristic of acute cholecystitis as the gallbladder is noted to be distended with pericholecystic edema. Labs during this admission did not show any elevation of his LFTs. During this admission the patient tested positive for COVID 19 and he was therefore treated in a conservative fashion. The patient notes that since the a for mentioned admission to the hospital he has been doing well until approximately last 1 to 2 days. The patient notes that he has had a few episodes of minor right upper quadrant abdominal pain that got markedly worse this evening. He says that the pain is located in the right upper quadrant without radiation or modifying factors. He does note that over the past several weeks he has not had any postprandial pain. He denies any nausea or vomiting and has not had any fevers, shakes, or chills. He has had prior abdominal surgery in the form of an appendectomy. Since arrival to the hospital the patient has had labs and imaging which independent reviewed. A gallbladder ultrasound showed the patient had numerous gallstones with mild gallbladder wall distention. There is no biliary ductal dilatation. There is no gallbladder wall thickening or pericholecystic fluid. Labs include a CBC her white blood cell count, hemoglobin, hematocrit, platelet count were normal. Chemistry profile showed sodium and potassium along with the BUN and creatinine were normal. His total bilirubin had a slight elevation at 1.1 but his LFTs were otherwise unremarkable. Lipase was not elevated. Allergies Allergy/AdvReac Type Severity Reaction Status Date / Time No Known Allergies Allergy Unverified 02/21/24 02:24 Home Medications Medication Instructions Recorded Confirmed Type lisinopril 20 mg tablet 20 mg PO DAILY 02/21/24 02/21/24 History Patient History Medical History Gall stones COVID-19 Hypertension Surgical History History of appendectomy Social History Smoking Status: Never smoker Hx Alcohol Use: No Hx Substance Use: No Preferred Language: Faroese Communication Ability: Effective Project Engineer Required: No Beliefs That Will Affect Care: None Current Living Situation: Other Current Living Situation Comment: [facility] Feels Safe at Home: Yes Assistive Devices: None Review of Systems Constitutional: no fever and no chills Ear, Nose, Mouth, Throat: no hearing loss Respiratory: no cough and no dyspnea Cardiovascular: no chest pain Gastrointestinal: as per Subjective / HPI Genitourinary: no dysuria Musculoskeletal: no back pain Integumentary: no rash Neurologic: no localized weakness Physical Exam Constitutional: WD/WN, vitals as above Eyes: + anicteric sclerae ENMT: Ears: no hearing impairment and no external ear abnormality Sublingual jaundice is absent Neck: trachea midline Respiratory: normal respiratory effort; no respiratory distress and no labored breathing Cardiovascular: Rate/Rhythm: regular rate and regular rhythm Gastrointestinal (Abdomen): Abdomen is soft and nonrigid. It is nondistended. Bowel sounds are present. There is no rebound tenderness or guarding but patient did have tenderness to palpation in the right upper quadrant. Musculoskeletal: No calf tenderness Skin: no rashes Neurologic: moves all extremities Psychiatric: A+Ox3, euthymic affect Results & Data Vital Signs (Past 12 Hours) Vital Signs Temp Pulse Pulse Resp BP BP Pulse Ox 02/21/24 01:07 80 18 109/81 99 02/20/24 23:30 80 18 98 02/20/24 23:15 36.1 C L 73 18 176/126 H 97 O2 Del Method 02/21/24 01:07 02/20/24 23:30 Room Air 02/20/24 23:15 Room Air PG Care Time/CCT Total # of Minutes Spent Total Time Spent with Patient: Total time spent is greater than 50% in coordination of care (as documented) at patient's floor/unit and/or counseling patient: Coding Level of Care Code 69994 IN/OBS CONSULT LVL 5,80M Diagnoses Acute cholecystitis K81.0
[2024-02-21] MEDS: SODIUM CHLORIDE 0.9% 1,000 ML IV SCH (02:00)
--- NOTE | 2024-02-21 02:56 | History & Physical Report ---
Date of Service February 21, 2024 Assessment & Plan (1) Acute cholecystitis: Plan: 33-year-old male with past medical history significant for hypertension comes from the long-term because of the right-sided abdominal pain started tonight. Pain is severe in nature. No nausea or vomiting. No diarrhea or constipation. Micturating okay. Denies any fevers. States pain sometimes shoots into the chest. Because of pain sometime feel short of breath. Currently no headache. No runny nose or sore throat. Occasional cough. Micturating okay. Currently resting comfortably and hemodynamically stable. Patient was admitted in 2021 for cholecystitis but at that time he also had COVID and supposed to follow as outpatient but seems did not followed up Acute cholecystitis LFTs seems okay IV Zosyn N.p.o., IV fluids IV Dilaudid as needed Surgery consulted Hypertension Patient states currently taking lisinopril Will monitor Obesity Needs counseling DVT prophylaxis SCDs Disposition Medical floor Full code History of Present Illness Chief Complaint: Right-sided abdominal pain Primary Care Provider: MARISABEL Sharma 33-year-old male with past medical history significant for hypertension comes from the long-term because of the right-sided abdominal pain started tonight. Pain is severe in nature. No nausea or vomiting. No diarrhea or constipation. Micturating okay. Denies any fevers. States pain sometimes shoots into the chest. Because of pain sometime feel short of breath. Currently no headache. No runny nose or sore throat. Occasional cough. Micturating okay. Currently resting comfortably and hemodynamically stable. Patient was admitted in 2021 for cholecystitis but at that time he also had COVID and supposed to follow as outpatient but seems did not followed up Past medical history. As mentioned above Past surgical history. Appendectomy Family history. Not on file Social history. Currently denies any smoking. Denies any alcohol. Allergies Allergy/AdvReac Type Severity Reaction Status Date / Time No Known Allergies Allergy Unverified 02/21/24 02:24 Home Medications Medication Instructions Recorded Confirmed Type lisinopril 20 mg tablet 20 mg PO DAILY 02/21/24 02/21/24 History Past Med/Surg History Medical History Gall stones COVID-19 Hypertension Surgical History History of appendectomy Social History Smoking Status: Never smoker Hx Alcohol Use: No Hx Substance Use: No Preferred Language: Finnish Communication Ability: Effective Offensive Coordinator Required: No Beliefs That Will Affect Care: None Current Living Situation: Other Current Living Situation Comment: [facility] Feels Safe at Home: Yes Assistive Devices: None Review of Systems Review of Systems: All systems reviewed & are unremarkable except as noted in HPI & below Physical Exam Physical Exam: General- Not in distress Head- atraumatic Eyes- PERRL ENT- oropharynx clear Lungs- clear to auscultation no wheezing or crackles Heart- regular rate and rhythm; no murmur, no gallop. Abdomen- normal bowel sounds, soft, RUQ tenderness, no rigidity no distension Extremities- no pretibial edema, no erythema seen Neuro- alert, oriented PERRL, no facial palsy; no dysarthria; moves extremities. Results & Data Results & Data Vital Signs (Past 12 Hours) Vital Signs Temp Pulse Pulse Resp BP BP Pulse Ox 02/21/24 01:07 80 18 109/81 99 02/20/24 23:30 80 18 98 02/20/24 23:15 36.1 C L 73 18 176/126 H 97 O2 Del Method 02/21/24 01:07 02/20/24 23:30 Room Air 02/20/24 23:15 Room Air Diagnostic Findings Laboratory Results WBC 8.66 K/ul (4.8-10.8) 02/20/24 Unknown RBC 5.31 M/uL (4.70-6.10) 02/20/24 Unknown Hgb 15.9 g/dl (14.0-18.0) 02/20/24 Unknown Hct 45.1 % (42.0-52.0) 02/20/24 Unknown MCV 84.9 fL (80.0-100.0) 02/20/24 Unknown MCH 29.9 pg (25.0-34.0) 02/20/24 Unknown MCHC 35.3 g/dL (32.0-36.0) 02/20/24 Unknown RDW Std Deviation 36.6 fL (36.4-46.3) 02/20/24 Unknown RDW Coeff of Bipin 12.0 % (11.5-14.5) 02/20/24 Unknown Plt Count 223 K/uL (130-400) 02/20/24 Unknown MPV 10.1 fL (9.4-12.4) 02/20/24 Unknown Immature Gran % (Auto) 0.3 % 02/20/24 Unknown Neut % (Auto) 68.9 % 02/20/24 Unknown Lymph % (Auto) 19.1 % 02/20/24 Unknown Johnson % (Auto) 10.0 % 02/20/24 Unknown Eos % (Auto) 0.9 % 02/20/24 Unknown Baso % (Auto) 0.8 % 02/20/24 Unknown Neut # (Auto) 5.96 K/uL (1.40-6.50) 02/20/24 Unknown Lymph # (Auto) 1.65 K/uL (1.20-3.40) 02/20/24 Unknown Johnson # (Auto) 0.87 K/uL (0.11-0.59) H 02/20/24 Unknown Eos # (Auto) 0.08 K/uL (0.00-0.50) 02/20/24 Unknown Baso # (Auto) 0.07 K/uL (0.00-0.20) 02/20/24 Unknown Immature Gran # (Auto) 0.03 K/uL (0.01-0.20) 02/20/24 Unknown Sodium 139 mmol/L (136-145) 02/20/24 Unknown Potassium 4.1 mmol/L (3.5-5.1) 02/20/24 Unknown Chloride 105 mmol/L (98-107) 02/20/24 Unknown Carbon Dioxide 25 mmol/L (21-32) 02/20/24 Unknown Anion Gap 9 (3-11) 02/20/24 Unknown BUN 19 mg/dl (6-23) 02/20/24 Unknown Creatinine 1.11 mg/dl (0.6-1.4) 02/20/24 Unknown Est Cr Clr Drug Dosing 132.0 ml/min 02/20/24 Unknown Est GFR ( Amer) 99.9 ml/min 02/20/24 Unknown Est GFR (Non-Af Amer) 86.2 ml/min 02/20/24 Unknown BUN/Creatinine Ratio 17.1 (10-20) 02/20/24 Unknown Glucose 112 mg/dl (70-99(Fasting)) H 02/20/24 Unknown Calcium 10.1 mg/dl (8.6-10.3) 02/20/24 Unknown Total Bilirubin 1.1 mg/dl (0.2-1.0) H 02/20/24 Unknown AST 17 U/L (13-39) 02/20/24 Unknown ALT 14 U/L (7-52) 02/20/24 Unknown Alkaline Phosphatase 71 U/L (34-104) 02/20/24 Unknown Total Protein 7.5 gm/dl (6.0-8.3) 02/20/24 Unknown Albumin 4.8 gm/dl (3.4-5.0) 02/20/24 Unknown Globulin 2.7 gm/dl (2.5-4.0) 02/20/24 Unknown Albumin/Globulin Ratio 1.8 (0.9-2) 02/20/24 Unknown Lipase 17 U/L (11-82) 02/20/24 Unknown SARS-CoV-2 (PCR) NEGATIVE (Negative) 02/21/24 Unknown Impressions Gallbladder Ultrasound 02/20/24 23:30 Exam(s): US GALLBLADDER EXAM: US Abdomen Limited, Gallbladder CLINICAL HISTORY: Reason for exam: ruq pain, ? GB. TECHNIQUE: Real-time ultrasound of the right upper quadrant with image documentation. COMPARISON: No relevant prior studies available. FINDINGS: Gallbladder: Numerous gallstones with mild gallbladder distention. No gallbladder wall thickening or pericholecystic fluid. Common bile duct: Common bile duct measures 3.0 mm. No stones. No dilation. Pancreas: Unremarkable as visualized. Right kidney: Right kidney measures 11.8 cm. IMPRESSION: Numerous gallstones with mild gallbladder distention. Electronically signed by: Jameson De Leon M.D. 02/21/24 00:33 AM Code Status & VTE Plan VTE Prophylaxis Plan VTE Prophylaxis will be ordered: Yes
[2024-02-21] MEDS ORDERED: HYDROmorphone INJ 0.5 MG/0.5 ML SYR IV PRN (03:22)
[2024-02-21] MEDS ORDERED: hydrALAZINE HCL 20 MG/ML VIAL IV PRN (03:22)
[2024-02-21] MEDS: PIPERACILLIN/TAZOBACTAM 4.5 GM in DEXTROSE 5% MINI-B 100 ML IV SCH (05:20)
[2024-02-21 06:15] LABS: Basophils # (auto) 0.04 K/uL (0.00-0.20); Basophils % (auto) 0.4 %; Eosinophils % (auto) 1.1 %; Hematocrit (blood only) 39.6 % (42.0-52.0); Hemoglobin 14.1 g/dl (14.0-18.0); Immature Granulocytes # (auto) 0.05 K/uL (0.01-0.20); Immature Granulocytes % (auto) 0.5 %; Lymphocytes # (auto) 1.78 K/uL (1.20-3.40); Lymphocytes % (auto) 19.6 %; Mean Corpuscular Hemoglobin 30.2 pg (25.0-34.0); Mean Corpuscular Hgb Conc 35.6 g/dL (32.0-36.0); Mean Corpuscular Volume 84.8 fL (80.0-100.0); Mean Platelet Volume 9.7 fL (9.4-12.4); Monocytes # (auto) 0.84 K/uL (0.11-0.59); Monocytes % (auto) 9.2 %; Neutrophils # (auto) 6.29 K/uL (1.40-6.50); Neutrophils % (auto) 69.2 %; Platelet Count 187 K/uL (130-400); RDW Coefficient of Variation 12.1 % (11.5-14.5); RDW Standard Deviation 36.9 fL (36.4-46.3); Red Blood Count 4.67 M/uL (4.70-6.10)
[2024-02-21 06:27] LABS: Albumin Globulin Ratio 1.9 (0.9-2); Albumin Level 4.1 gm/dl (3.4-5.0); BUN Creatinine Ratio 16.1 (10-20); Bilirubin,Total 1.6 mg/dl (0.2-1.0); Calcium 9.4 mg/dl (8.6-10.3); Creatinine Clr Calc Pharmacy 130.9 ml/min; Est GFR (African American) 98.8 ml/min; Est GFR (Non-African American) 85.2 ml/min; Globulin 2.2 gm/dl (2.5-4.0); Potassium 4.5 mmol/L (3.5-5.1); Total Protein 6.3 gm/dl (6.0-8.3)
[2024-02-21 06:33] LABS: Partial Thromboplastin Time 29 Seconds (21-31); Prothrombin Time 11.3 Seconds (9.0-12.0)
--- NOTE | 2024-02-21 07:50 | XRay Report ---
XR chest 1V portable HISTORY: 33 years-old Male pre op preoperative exam COMPARISON: 06/17/2022 TECHNIQUE: AP view of the chest FINDINGS: Cardiomediastinal and hilar silhouettes are unchanged. There is no pneumothorax, pleural effusion, ai rspace consolidation or pulmonary edema. Bones of the chest normal. IMPRESSION: No acute process. ACT 112: Negative or not required by law. The above report was generated using voice recognition software. It may contain grammatical, syntax o r spelling errors. Electronically signed by: Marcelo Donaldson M.D. 02/21/2024 7:49 AM
--- NOTE | 2024-02-21 07:53 | Anesthesiology Consultation ---
Date of Service February 21, 2024 Assessment & Plan Chart Review Chart Review: order entry representative initiated History Surgery Operation Date: 02/21/24 09:00 Proposed Procedures p Laparoscopic Cholecystectomy - Jt Cardona DO, FACS Height/Weight Height: 6 ft 1 in Weight: 129.1 kg Allergies Allergy/AdvReac Type Severity Reaction Status Date / Time No Known Allergies Allergy Unverified 02/21/24 02:24 Medications Home Medications Medication Instructions Recorded Confirmed Last Taken lisinopril 20 mg tablet 20 mg PO DAILY 02/21/24 02/21/24 Unknown Active Medications Generic Name Dose Route Start Last Admin Trade Name Freq PRN Reason Stop Dose Admin Sodium Chloride 1,000 mls @ 100 mls/hr 02/21/24 01:30 02/21/24 02:00 Nss IV 03/22/24 01:29 100 mls/hr .Q10H SASKIA Administration Piperacillin Sod/Tazobactam 100 mls @ 25 mls/hr 02/21/24 06:00 02/21/24 05:20 Sod 4.5 gm/ Dextrose IV 03/02/24 05:59 25 mls/hr Q8H SASKIA Administration Protocol Past Medical History Medical History Gall stones COVID-19 Hypertension Past Surgical History Surgical History History of appendectomy Social History Smoking Status: Never smoker Hx Alcohol Use: No Hx Substance Use: No Physical Exam Vital Signs Last Vital Signs Temp 97.9 F 02/21/24 03:05 Pulse 68 02/21/24 03:05 Resp 18 02/21/24 03:05 BP 125/68 02/21/24 03:05 Pulse Ox 94 02/21/24 03:05 O2 Del Method Room Air 02/21/24 03:05 Testing Laboratory Results 02/21/24 05:55 02/21/24 05:55 PT 11.3 Seconds (9.0-12.0) 02/21/24 05:55 INR 1.0 (0.9-1.1) 02/21/24 05:55 APTT 29 Seconds (21-31) 02/21/24 05:55 Chest X-Ray Date: 02/21/24 Findings: + NAD
[2024-02-21] MEDS ORDERED: fentaNYL citrate PF 100 MCG/2 ML VIAL ONE ×3 (08:29→10:08)
[2024-02-21] MEDS ORDERED: LIDOCAINE 2% 2 ML VIAL/AMP(20MG/ML) INFIL ONE (08:29)
[2024-02-21] MEDS ORDERED: PROPOFOL IV EMULSION 10 MG/ML 20 ML VIAL IV ONE (08:29)
[2024-02-21] MEDS ORDERED: ONDANSETRON INJ 2 MG/ML 2 ML VIAL ONE (08:29)
[2024-02-21] MEDS ORDERED: ROCURONIUM BROMIDE 10 MG/ML 5 ML VIAL IV ONE (08:29)
[2024-02-21] MEDS ORDERED: fentaNYL citrate PF 100 MCG/2 ML VIAL IV PRN (08:51)
[2024-02-21] MEDS ORDERED: ePHEDrine sulfate 50 MG/ML AMP IV PRN (08:51)
[2024-02-21] MEDS ORDERED: ONDANSETRON INJ 2 MG/ML 2 ML VIAL IV PRN (08:51)
[2024-02-21] MEDS ORDERED: ATROPINE SULFATE 0.1 MG/ML 10ML SYR IV PRN (08:51)
--- NOTE | 2024-02-21 09:13 | Surgery Progress Note ---
Date of Service February 21, 2024 Assessment & Plan (1) Acute cholecystitis: Plan: cholelithiasis w/ cholecystitis plan for robotic assisted laparoscopic cholecystectomy with possible cholangiogram risks discussed to include but not limited to bleeding, infection, retained stone, bile leak, open surgery, damage to surrounding structures including bile duct, need for future or more extensive surgery, failure to treat symptoms, and risks of anesthesia. Admission and Anticipated Discharge Date Admission Date: February 21, 2024 Subjective cholelithiasis and cholecystitis. LFT's normal. Similar episode 2021 but had covid, so treated w/ abx. prior lap appy. Physical Exam Constitutional: WD/WN, vitals as above + obese Respiratory: normal respiratory effort, lungs clear to auscultation Cardiovascular: RRR, no murmur, no edema Gastrointestinal (Abdomen): Inspection/Auscultation: + abdominal surgical scar Percussion/Palpation: + abdomen tender (ruq pain); no guarding, no hepatosplenomegaly and no hernia Results & Data Vital Signs (Past 12 Hours) Vital Signs Temp Pulse Pulse Pulse Resp BP BP 02/21/24 07:56 36.7 C 64 16 122/68 02/21/24 03:05 02/21/24 03:05 36.6 C 68 18 125/68 02/21/24 01:07 80 18 109/81 02/20/24 23:30 80 18 02/20/24 23:15 36.1 C L 73 18 176/126 H Pulse Ox O2 Del Method 02/21/24 07:56 97 Room Air 02/21/24 03:05 Room Air 02/21/24 03:05 94 Room Air 02/21/24 01:07 99 02/20/24 23:30 98 Room Air 02/20/24 23:15 97 Room Air Laboratory Results Laboratory Results - last 24 hr 02/20/24 02/21/24 02/21/24 Unknown 03:20 05:55 WBC 8.66 9.10 RBC 5.31 4.67 L Hgb 15.9 14.1 Hct 45.1 39.6 L MCV 84.9 84.8 MCH 29.9 30.2 MCHC 35.3 35.6 RDW Std Deviation 36.6 36.9 RDW Coeff of Bipin 12.0 12.1 Plt Count 223 187 MPV 10.1 9.7 Immature Gran % (Auto) 0.3 0.5 Neut % (Auto) 68.9 69.2 Lymph % (Auto) 19.1 19.6 Charles % (Auto) 10.0 9.2 Eos % (Auto) 0.9 1.1 Baso % (Auto) 0.8 0.4 Neut # (Auto) 5.96 6.29 Lymph # (Auto) 1.65 1.78 Charles # (Auto) 0.87 H 0.84 H Eos # (Auto) 0.08 0.10 Baso # (Auto) 0.07 0.04 Immature Gran # (Auto) 0.03 0.05 PT 11.3 INR 1.0 APTT 29 PTT Ratio 1.0 Sodium 139 140 Potassium 4.1 4.5 Chloride 105 107 Carbon Dioxide 25 29 Anion Gap 9 4 BUN 19 18 Creatinine 1.11 1.12 Est Cr Clr Drug Dosing 132.0 130.9 Est GFR ( Amer) 99.9 98.8 Est GFR (Non-Af Amer) 86.2 85.2 BUN/Creatinine Ratio 17.1 16.1 Glucose 112 H 99 Calcium 10.1 9.4 Total Bilirubin 1.1 H 1.6 H AST 17 14 ALT 14 11 Alkaline Phosphatase 71 60 Total Protein 7.5 6.3 Albumin 4.8 4.1 Globulin 2.7 2.2 L Albumin/Globulin Ratio 1.8 1.9 Lipase 17 13 Nasal Screen MRSA (PCR) Negative SARS-CoV-2 (PCR) 02/21/24 Unknown WBC RBC Hgb Hct MCV MCH MCHC RDW Std Deviation RDW Coeff of Bipin Plt Count MPV Immature Gran % (Auto) Neut % (Auto) Lymph % (Auto) Charles % (Auto) Eos % (Auto) Baso % (Auto) Neut # (Auto) Lymph # (Auto) Charles # (Auto) Eos # (Auto) Baso # (Auto) Immature Gran # (Auto) PT INR APTT PTT Ratio Sodium Potassium Chloride Carbon Dioxide Anion Gap BUN Creatinine Est Cr Clr Drug Dosing Est GFR ( Amer) Est GFR (Non-Af Amer) BUN/Creatinine Ratio Glucose Calcium Total Bilirubin AST ALT Alkaline Phosphatase Total Protein Albumin Globulin Albumin/Globulin Ratio Lipase Nasal Screen MRSA (PCR) SARS-CoV-2 (PCR) NEGATIVE Diagnostic Findings Exam(s): US GALLBLADDER EXAM: US Abdomen Limited, Gallbladder CLINICAL HISTORY: Reason for exam: ruq pain, ? GB. TECHNIQUE: Real-time ultrasound of the right upper quadrant with image documentation. COMPARISON: No relevant prior studies available. FINDINGS: Gallbladder: Numerous gallstones with mild gallbladder distention. No gallbladder wall thickening or pericholecystic fluid. Common bile duct: Common bile duct measures 3.0 mm. No stones. No dilation. Pancreas: Unremarkable as visualized. Right kidney: Right kidney measures 11.8 cm. IMPRESSION: Numerous gallstones with mild gallbladder distention. PG Care Time/CCT Total # of Minutes Spent Total Time Spent with Patient: Total time spent is greater than 50% in coordination of care (as documented) at patient's floor/unit and/or counseling patient: Coding Level of Care Code 60866 SUB INP/OBS CARE 2/35MIN Diagnoses Acute cholecystitis K81.0
[2024-02-21] MEDS ORDERED: SUGAMMADEX SODIUM 200 MG/2 ML VIAL IV ONE (10:08)
[2024-02-21] MEDS: BUPIVACAINE 0.5 % 5 MG/1 ML MPF 30ML VIAL ONE (10:18)
--- NOTE | 2024-02-21 10:31 | Operative Report ---
PG Post Operative Report Pre & Post Diagnosis Operation Date: 02/21/24 09:00 Pre-Op Diagnosis: Abdominal pain, acute cholecystitis Post-Op Diagnosis: Abdominal pain, acute cholecystitis I identified the patient and participated in the time-out.: Yes Procedure Operation Date: 02/21/24 09:00 Actual Procedures p Laparoscopic Cholecystectomy(Not Applicable) - Jt Cardona DO, FACS Surgeon Jt Cardona DO, FACS Product Manager [employer] none Estimated Blood Loss 20 Findings Consistent with Post-Op Diagnosis Moderate acute cholecystitis. Critical view of safety obtained. Cystic artery and duct doubly clipped and divided. Specimens Gallbladder Anesthesia Type General Complications none Disposition Accompanied Patient To Recovery: No Disposition: Recovery Room Indications 33-year-old incarcerated male presented with signs symptoms of cholelithiasis and acute cholecystitis confirmed by ultrasound, plan for laparoscopic cholecystectomy. The risks of the procedure were discussed, all questions were answered, and the patient agreed to proceed with surgery as planned. Description of Procedure The patient was properly identified, consented, and taken to the operating room where he was placed in the supine position. General endotracheal anesthesia was induced. SCDs and a safety belt were placed. Preoperative antibiotics were administered. The patient's abdomen was prepped and draped in the standard sterile fashion. A surgical timeout was performed and all parties were in agreement that this was the correct patient and procedure to be performed and we continued as planned. An incision was made superior and to the left of the umbilicus overlying the rectus muscle and the Veress needle was inserted. Saline drop test confirmed entry into the peritoneum. The abdomen was insufflated with carbon dioxide which the patient tolerated without incident. The abdomen was then entered using the Optiview technique and a 5 mm trocar. The laparoscope was inserted and no damage from initial trocar or Veress needle placement was noted, no gross abnormalities were noted within the 4 quadrants of the abdomen. An 11 mm port was placed in the subxiphoid position and two 5 mm ports were then placed in the right subcostal position. The patient was placed in reverse Trendelenburg position and rotated towards the left. The gallbladder was moderately and acutely inflamed. The dome of the gallbladder was retracted towards the left upper quadrant and the infundibulum was retracted toward the right lower quadrant revealing Calot's triangle. Peritoneal attachments were taken down with electrocautery and blunt dissection. The cystic duct and artery were circumferentially dissected. A window of safety was obtained showing the cystic duct entering the gallbladder with no aberrant structures noted. The cystic duct and artery were doubly clipped and divided. The gallbladder was then lifted off the gallbladder fossa with electrocautery. The dome of the gallbladder was partially intrahepatic, and bleeding from the liver bed was controlled with electrocautery. The gallbladder was placed in an Endo Catch bag and removed through the subxiphoid port site. The right upper quadrant was irrigated and hemostasis was found to be good. 5 mm trochars were removed under direct visualization and the abdomen was allowed to collapse. The subxiphoid port site fascia was closed with 0 Vicryl suture utilizing the Jayy-Pasha device prior to removal of the ports. The wound was irrigated, and the skin of all ports was closed with 4-0 Monocryl subcuticular sutures. Dermabond was placed over the wounds. The patient was extubated in the operating room and taken to the PACU where he recovered without apparent incident. All sponge, instrument and needle counts were correct at the conclusion of the procedure. The patient tolerated the procedure well. I attest to the content of the Intraoperative Record and any orders documented therein. Any exceptions are noted below.
--- NOTE | 2024-02-21 11:00 | Anesthesiology Progress Note ---
Date of Service February 21, 2024 Anesthesia Post Procedure Vital Signs Vital Signs: Temp Pulse Pulse Pulse Resp BP BP 02/21/24 10:50 62 15 165/92 H 02/21/24 10:40 97.0 F L 66 12 147/104 H 02/21/24 07:56 98.1 F 64 16 122/68 02/21/24 03:05 02/21/24 03:05 97.9 F 68 18 125/68 02/21/24 01:07 80 18 109/81 02/20/24 23:30 80 18 02/20/24 23:15 97.0 F L 73 18 176/126 H Pulse Ox O2 Del Method O2 Flow Rate 02/21/24 10:50 100 Oxymask 4 02/21/24 10:40 99 Oxymask 6 02/21/24 07:56 97 Room Air 02/21/24 03:05 Room Air 02/21/24 03:05 94 Room Air 02/21/24 01:07 99 02/20/24 23:30 98 Room Air 02/20/24 23:15 97 Room Air Pain Intensity Right Upper Abdomen: Pain Intensity: 6 Transfer of Care Handoff Completed per policy Notes Mental Status: alert / awake / arousable and participated in evaluation Patient Amnestic to Procedure: Yes Nausea / Vomiting: adequately controlled Pain: adequately controlled Airway Patency, RR, SpO2: stable & adequate BP & HR: stable & adequate Hydration State: stable & adequate Anesthetic Complications: no major complications apparent and Pt Satisfied with anesthetic care
[2024-02-21] MEDS ORDERED: oxyCODONE HCL IR 5 MG TAB (IMMEDIATE RELEASE) PO PRN ×2 (11:23)
[2024-02-21] MEDS: ACETAMINOPHEN 325 MG TAB PO SCH (12:45)
[2024-02-21] MEDS: lisinopril 20 MG TAB PO ONE (12:45)
[2024-02-21] MEDS: KETOROLAC TROMETHAMINE 15 MG/ML VIAL IV SCH (12:45)
--- NOTE | 2024-02-21 15:21 | Hospitalist Progress Note ---
Date of Service February 21, 2024 Assessment & Plan (1) Acute cholecystitis: Plan: 33-year-old male with past medical history significant for hypertension comes from the custodial because of the right-sided abdominal pain started tonight. Pain is severe in nature. No nausea or vomiting. No diarrhea or constipation. Micturating okay. Denies any fevers. States pain sometimes shoots into the chest. Because of pain sometime feel short of breath. Currently no headache. No runny nose or sore throat. Occasional cough. Micturating okay. Currently resting comfortably and hemodynamically stable. Patient was admitted in 2021 for cholecystitis but at that time he also had COVID and supposed to follow as outpatient but seems did not followed up Acute cholecystitis LFTs seems okay Has been on IV Zosyn Kept n.p.o. n.p.o., IV fluids and symptomatic medications,IV Dilaudid as needed Appreciate surgery input and recommendation Status post laparoscopic cholecystectomy on 02/21/2024 Minimal right upper quadrant pain without any other symptom Clears have been started Likely discharge tomorrow Hypertension Patient states currently taking lisinopril Blood pressure is noted to be very high following surgery Received 20 of lisinopril today Will have his usual medications from tomorrow Monitor PRP Obesity Needs counseling DVT prophylaxis SCDs Disposition Medical floor Full code Admission and Anticipated Discharge Date Admission Date: February 21, 2024 Subjective 02/21/2024 The patient was seen and examined in the medical floor He is a status post laparoscopic cholecystectomy Complains of pain in the right upper quadrant with some nausea Denies any other symptoms Review of Systems Review of Systems: All systems reviewed and are unremarkable except as noted below Physical Exam Physical Exam: Lying in bed without any acute distress Constitutional: well developed, well nourished and + obese; not ill appearing Eyes: PERRL, conjunctivae normal, anicteric sclerae ENMT: external ear and nose normal, oropharynx normal Neck: trachea midline, no thyromegaly Respiratory: no respiratory distress Auscultation: lungs clear to auscultation bilaterally Cardiovascular: Rate/Rhythm: regular rate and regular rhythm; not tachycardic Heart Sounds: normal S1 and normal S2; no murmur Extremities: no edema Gastrointestinal (Abdomen): Inspection/Auscultation: normal bowel sounds; abdo men not distended Percussion/Palpation: + abdomen tender (All over but mostly over right upper quadrant) and abdomen soft Musculoskeletal: No acute arthritis involving any joint Neurologic: normal touch/pain/proprioception and moves all extremities; no focal motor deficits Psychiatric: A+Ox3, euthymic affect Lymphatic: no cervical or axillary lymphadenopathy Results & Data Results & Data Vital Signs (Past 12 Hours) Vital Signs Temp Pulse Pulse Resp BP Pulse Ox O2 Del Method 02/21/24 15:09 36.7 C 73 17 141/79 H 97 Room Air 02/21/24 13:27 36.7 C 66 17 144/78 H 98 Room Air 02/21/24 12:44 36.4 C L 53 L 17 154/82 H 100 Room Air 02/21/24 12:08 36.5 C 58 L 17 154/96 H 97 Room Air 02/21/24 11:10 65 14 150/96 H 97 Room Air 02/21/24 11:00 36.5 C 76 16 149/96 H 93 Room Air 02/21/24 10:50 62 15 165/92 H 100 Oxymask 02/21/24 10:40 36.1 C L 66 12 147/104 H 99 Oxymask 02/21/24 07:56 36.7 C 64 16 122/68 97 Room Air O2 Flow Rate 02/21/24 15:09 02/21/24 13:27 02/21/24 12:44 02/21/24 12:08 02/21/24 11:10 02/21/24 11:00 02/21/24 10:50 4 02/21/24 10:40 6 02/21/24 07:56 Laboratory Results Short CBC 02/20/24 02/21/24 Range/Units Unknown 05:55 WBC 8.66 9.10 (4.8-10.8) K/ul Hgb 15.9 14.1 (14.0-18.0) g/dl Hct 45.1 39.6 L (42.0-52.0) % Plt Count 223 187 (130-400) K/uL BMP 02/20/24 02/21/24 Unknown 05:55 Sodium 139 140 Potassium 4.1 4.5 Chloride 105 107 Carbon Dioxide 25 29 BUN 19 18 Creatinine 1.11 1.12 Glucose 112 H 99 Calcium 10.1 9.4 Liver Function 02/20/24 02/21/24 Range/Units Unknown 05:55 Total Bilirubin 1.1 H 1.6 H (0.2-1.0) mg/dl AST 17 14 (13-39) U/L ALT 14 11 (7-52) U/L Alkaline Phosphatase 71 60 (34-104) U/L Albumin 4.8 4.1 (3.4-5.0) gm/dl Medications Administered Current Inpatient Medications Acetaminophen (Acetaminophen 325 Mg Tab) 650 mg PO Q6H [facility] Stop: 03/22/24 11:59 Last Admin: 02/21/24 12:45 Dose: 650 mg Hydralazine HCl (Hydralazine Hcl 20 Mg/Ml Vial) 5 mg IV Q6H PRN PRN Reason: Hypertension Stop: 03/22/24 03:21 Hydromorphone HCl (Hydromorphone Inj 0.5 Mg/0.5 Ml Syr) 0.5 mg IV Q3H PRN PRN Reason: Mod-Sev Pain (Scale 4-10) Stop: 03/06/24 03:21 Sodium Chloride (Nss) 1,000 mls @ 100 mls/hr IV .Q10H [facility] Stop: 03/22/24 01:29 Last Admin: 02/21/24 14:35 Dose: 100 mls/hr Piperacillin Sod/Tazobactam (Sod 4.5 gm/ Dextrose) 100 mls @ 25 mls/hr IV Q8H [facility]; Protocol Stop: 03/02/24 05:59 Last Admin: 02/21/24 15:06 Dose: 25 mls/hr Ketorolac Tromethamine (Ketorolac Tromethamine 15 Mg/Ml Vial) 15 mg IV Q6H [facility] Stop: 02/24/24 11:59 Last Admin: 02/21/24 12:45 Dose: 15 mg Lisinopril (Lisinopril 20 Mg Tab) 20 mg PO DAILY [facility] Stop: 03/23/24 08:59 Oxycodone HCl (Oxycodone Hcl Ir 5 Mg Tab (Immediate Release)) 10 mg PO Q4H PRN PRN Reason: SEVERE Pain (7,8,9,10) Stop: 03/06/24 11:22 Oxycodone HCl (Oxycodone Hcl Ir 5 Mg Tab (Immediate Release)) 5 mg PO Q4H PRN PRN Reason: MODERATE Pain (4,5,6) & Pre PT Stop: 03/06/24 11:22
[2024-02-21 19:17] LABS: Appearance Urine Clear (Clear); Bacteria Urine Automated None Seen (None Seen); Bilirubin Urine Negative (Negative); Blood Urine Negative (Negative); Color Urine Yellow; Epithelial Cell Urine Auto 0-2 /hpf (0-2); Glucose Urine UA Negative (Negative); Ketones Urine Negative (Negative); Leukocyte Esterase Urine Trace (Negative); Nitrite Urine Negative (Negative); Protein Urine Negative (Negative); RBC Urine Automated 0-2 /hpf (0-2); Specific Gravity Urine 1.016 (1.000-1.030); Urobilinogen Urine Negative (Negative)
--- NOTE | 2024-02-22 05:38 | Surgery Progress Note ---
Date of Service February 22, 2024 Assessment & Plan (1) Acute cholecystitis: Plan: Status post laparoscopic cholecystectomy on 02/21/2024 (postop day #1) Continue analgesics as needed Continue antiemetics as needed Patient is currently tolerating full liquid diet; consideration be given to advancing diet as tolerated Mobilize as able Check a.m. labs when available If patient remains hospitalized today consideration should be given to adding DVT prophylaxis if his hemoglobin and hematocrit are stable Admission and Anticipated Discharge Date Admission Date: February 21, 2024 Supervising Physician Co-Signing Physician Notes pnt S&E, agree with above. POD#1 lap layo, feeling better, sore from surgery. tolerating diet. afvss, abd soft, appropriately ttp, incisions w/o infx. labs normal. okay to d/c from surgery standpoint, wound care instructions and activity restrictions reviewed. f/u prn Subjective Patient is resting comfortably in bed. He notes tenderness near his surgical incisions but overall feels well. He is tolerating full liquid diet without nausea or vomiting and denies any exacerbation of his abdominal pain with oral intake. He is passing flatus but has not had a bowel movement since surgery. Physical Exam Gastrointestinal (Abdomen): Abdomen is soft and nondistended. Patient has tenderness on the right side of his abdomen near his surgical incisions. All 4 surgical incisions are clean, dry, and intact. Results & Data Vital Signs (Past 12 Hours) Vital Signs Temp Pulse Resp BP Pulse Ox O2 Del Method 02/22/24 03:35 36.7 C 66 16 151/79 H 97 Room Air 02/21/24 23:19 36.8 C 74 16 150/76 H 97 Room Air 02/21/24 19:38 36.8 C 75 18 152/74 H 96 Room Air PG Care Time/CCT Total # of Minutes Spent Total Time Spent with Patient: Total time spent is greater than 50% in coordination of care (as documented) at patient's floor/unit and/or counseling patient: Coding Level of Care Code 35736 Post Operative Follow-Up Diagnoses Acute cholecystitis K81.0
[2024-02-22 06:33] LABS: Basophils # (auto) 0.06 K/uL (0.00-0.20); Basophils % (auto) 0.6 %; Eosinophils # (auto) 0.12 K/uL (0.00-0.50); Eosinophils % (auto) 1.2 %; Hematocrit (blood only) 37.1 % (42.0-52.0); Hemoglobin 13.1 g/dl (14.0-18.0); Immature Granulocytes # (auto) 0.05 K/uL (0.01-0.20); Immature Granulocytes % (auto) 0.5 %; Lymphocytes # (auto) 1.41 K/uL (1.20-3.40); Lymphocytes % (auto) 14.6 %; Mean Corpuscular Hemoglobin 30.4 pg (25.0-34.0); Mean Corpuscular Hgb Conc 35.3 g/dL (32.0-36.0); Mean Corpuscular Volume 86.1 fL (80.0-100.0); Monocytes # (auto) 1.14 K/uL (0.11-0.59); Monocytes % (auto) 11.8 %; Neutrophils # (auto) 6.89 K/uL (1.40-6.50); Neutrophils % (auto) 71.3 %; Platelet Count 178 K/uL (130-400); RDW Coefficient of Variation 12.2 % (11.5-14.5); RDW Standard Deviation 38.4 fL (36.4-46.3); Red Blood Count 4.31 M/uL (4.70-6.10); White Blood Count 9.67 K/ul (4.8-10.8)
[2024-02-22 06:41] LABS: Albumin Globulin Ratio 1.8 (0.9-2); Albumin Level 3.8 gm/dl (3.4-5.0); BUN Creatinine Ratio 9.9 (10-20); Calcium 8.8 mg/dl (8.6-10.3); Creatinine Clr Calc Pharmacy 132.1 ml/min; Est GFR (African American) 99.9 ml/min; Est GFR (Non-African American) 86.2 ml/min; Globulin 2.1 gm/dl (2.5-4.0); Potassium 3.9 mmol/L (3.5-5.1); Total Protein 5.9 gm/dl (6.0-8.3)
--- NOTE | 2024-02-22 07:22 | Electrocardiogram Report ---
Test Reason : Blood Pressure : / mmHG Vent. Rate : 068 BPM Atrial Rate : 068 BPM P-R Int : 178 ms QRS Dur : 094 ms QT Int : 400 ms P-R-T Axes : 049 079 037 degrees QTc Int : 425 ms Normal sinus rhythm Normal ECG When compared with ECG of 18-JUN-2022 11:41, No significant change was found Confirmed by Fredy Solomon ([id number]) on 02/22/2024 7:21:29 AM Referred By: Zachary PETIT Confirmed By:Efrain Solomon
[2024-02-22] MEDS: lisinopril 20 MG TAB PO SCH (09:26)
--- NOTE | 2024-02-22 11:51 | Hospitalist Progress Note ---
Date of Service February 22, 2024 Assessment & Plan (1) Acute cholecystitis: Plan: 33-year-old male with past medical history significant for hypertension comes from the halfway because of the right-sided abdominal pain started tonight. Pain is severe in nature. No nausea or vomiting. No diarrhea or constipation. Micturating okay. Denies any fevers. States pain sometimes shoots into the chest. Because of pain sometime feel short of breath. Currently no headache. No runny nose or sore throat. Occasional cough. Micturating okay. Currently resting comfortably and hemodynamically stable. Patient was admitted in 2021 for cholecystitis but at that time he also had COVID and supposed to follow as outpatient but seems did not followed up Acute cholecystitis LFTs seems okay Has been on IV Zosyn Kept n.p.o. n.p.o., IV fluids and symptomatic medications,IV Dilaudid as needed Appreciate surgery input and recommendation Has been tolerating diet and has had bowel movement Ambulating without difficulties Will be discharged home this afternoon Status post laparoscopic cholecystectomy on 02/21/2024 Minimal right upper quadrant pain without any other symptom Clears have been started Has been tolerating regular diet and surgery cleared him for discharge Hypertension Patient states currently taking lisinopril Blood pressure is noted to be very high following surgery Received 20 of lisinopril today Will have his usual medications from tomorrow Monitor PRP-unremarkable Will continue with his lisinopril as before on discharge Obesity Needs counseling DVT prophylaxis SCDs Disposition Medical floor Full code Admission and Anticipated Discharge Date Admission Date: February 21, 2024 Subjective 02/21/2024 The patient was seen and examined in the medical floor He is a status post laparoscopic cholecystectomy Complains of pain in the right upper quadrant with some nausea Denies any other symptoms 02/22/2024 The patient was seen and examined in medical floor He has been complaining of minimal pain in the right upper quadrant and abdomen in general No nausea no vomiting Has been tolerating diet and has a bowel movement Review of Systems Review of Systems: All systems reviewed and are unremarkable except as noted below Physical Exam Physical Exam: Lying in bed without any acute distress Constitutional: well developed, well nourished and + obese; not ill appearing Eyes: PERRL, conjunctivae normal, anicteric sclerae ENMT: external ear and nose normal, oropharynx normal Neck: trachea midline, no thyromegaly Respiratory: no respiratory distress Auscultation: lungs clear to auscultation bilaterally Cardiovascular: Rate/Rhythm: regular rate and regular rhythm; not tachycardic Heart Sounds: normal S1 and normal S2; no murmur Extremities: no edema Gastrointestinal (Abdomen): Inspection/Auscultation: normal bowel sounds; abdomen not distended Percussion/Palpation: + abdomen tender (All over but mostly over right upper quadrant) and abdomen soft Musculoskeletal: No acute arthritis involving any of the joint Neurologic: normal touch/pain/proprioception and moves all extremities; no focal motor deficits Psychiatric: A+Ox3, euthymic affect Lymphatic: no cervical or axillary lymphadenopathy Results & Data Results & Data Vital Signs (Past 12 Hours) Vital Signs Temp Pulse Resp BP Pulse Ox O2 Del Method 02/22/24 07:50 36.7 C 79 16 128/89 96 Room Air 02/22/24 03:35 36.7 C 66 16 151/79 H 97 Room Air Laboratory Results Short CBC 02/22/24 Range/Units 05:33 WBC 9.67 (4.8-10.8) K/ul Hgb 13.1 L (14.0-18.0) g/dl Hct 37.1 L (42.0-52.0) % Plt Count 178 (130-400) K/uL BMP 02/22/24 05:33 Sodium 139 Potassium 3.9 Chloride 107 Carbon Dioxide 29 BUN 11 Creatinine 1.11 Glucose 93 Calcium 8.8 Liver Function 02/22/24 Range/Units 05:33 Total Bilirubin 2.0 H (0.2-1.0) mg/dl AST 22 (13-39) U/L ALT 23 (7-52) U/L Alkaline Phosphatase 63 (34-104) U/L Albumin 3.8 (3.4-5.0) gm/dl Urine 02/21/24 Range/Units 18:00 Urine Color Yellow Urine Appearance Clear (Clear) Urine pH 6.0 (4.5-7.5) Ur Specific [place] 1.016 (1.000-1.030) Urine Protein Negative (Negative) Urine Glucose (UA) Negative (Negative) Medications Administered Current Inpatient Medications Acetaminophen (Acetaminophen 325 Mg Tab) 650 mg PO Q6H [facility] Stop: 03/22/24 11:59 Last Admin: 02/22/24 05:36 Dose: 650 mg Hydralazine HCl (Hydralazine Hcl 20 Mg/Ml Vial) 5 mg IV Q6H PRN PRN Reason: Hypertension Stop: 03/22/24 03:21 Hydromorphone HCl (Hydromorphone Inj 0.5 Mg/0.5 Ml Syr) 0.5 mg IV Q3H PRN PRN Reason: Mod-Sev Pain (Scale 4-10) Stop: 03/06/24 03:21 Ketorolac Tromethamine (Ketorolac Tromethamine 15 Mg/Ml Vial) 15 mg IV Q6H [facility] Stop: 02/24/24 11:59 Last Admin: 02/22/24 05:36 Dose: 15 mg Lisinopril (Lisinopril 20 Mg Tab) 20 mg PO DAILY [facility] Stop: 03/23/24 08:59 Last Admin: 02/22/24 09:26 Dose: 20 mg Oxycodone HCl (Oxycodone Hcl Ir 5 Mg Tab (Immediate Release)) 10 mg PO Q4H PRN PRN Reason: SEVERE Pain (7,8,9,10) Stop: 03/06/24 11:22 Oxycodone HCl (Oxycodone Hcl Ir 5 Mg Tab (Immediate Release)) 5 mg PO Q4H PRN PRN Reason: MODERATE Pain (4,5,6) & Pre PT Stop: 03/06/24 11:22
--- NOTE | 2024-02-22 16:01 | Discharge Summary ---
Date of Service February 22, 2024 Admission HPI Per Admitting Provider 33-year-old male with past medical history significant for hypertension comes from the residential because of the right-sided abdominal pain started tonight. Pain is severe in nature. No nausea or vomiting. No diarrhea or constipation. Micturating okay. Denies any fevers. States pain sometimes shoots into the chest. Because of pain sometime feel short of breath. Currently no headache. No runny nose or sore throat. Occasional cough. Micturating okay. Currently resting comfortably and hemodynamically stable. Patient was admitted in 2021 for cholecystitis but at that time he also had COVID and supposed to follow as outpatient but seems did not followed up Past medical history. As mentioned above Past surgical history. Appendectomy Family history. Not on file Social history. Currently denies any smoking. Denies any alcohol. Admission Exam Per Admitting Provider Physical Exam: General- Not in distress Head- atraumatic Eyes- PERRL ENT- oropharynx clear Lungs- clear to auscultation no wheezing or crackles Heart- regular rate and rhythm; no murmur, no gallop. Abdomen- normal bowel sounds, soft, RUQ tenderness, no rigidity no distension Extremities- no pretibial edema, no erythema seen Neuro- alert, oriented PERRL, no facial palsy; no dysarthria; moves extremities. Principal Diagnosis acute cholecystitis s/p cholecystectomy Discharge Exam Lying in bed without any acute distress Constitutional well developed, well nourished and + obese; not ill appearing Eyes PERRL, conjunctivae normal, anicteric sclerae ENMT external ear and nose normal, oropharynx normal Neck trachea midline, no thyromegaly Respiratory no respiratory distress Auscultation: lungs clear to auscultation bilaterally Cardiovascular Rate/Rhythm: regular rate and regular rhythm; not tachycardic Heart Sounds: normal S1 and normal S2; no murmur Extremities: no edema Gastrointestinal (Abdomen) Inspection/Auscultation: normal bowel sounds; abdomen not distended Percussion/Palpation: + abdomen tender (All over but mostly over right upper quadrant) and abdomen soft Neurologic normal touch/pain/proprioception and moves all extremities; no focal motor deficits Psychiatric A+Ox3, euthymic affect Lymphatic no cervical or axillary lymphadenopathy Discharge Data Allergies Allergy/AdvReac Type Severity Reaction Status Date / Time No Known Allergies Allergy Unverified 02/21/24 02:24 Consultations 02/21/24 01:08 ED Decision to Admit Stat 02/21/24 03:22 Consult General Surgery Routine Procedures Performed Operation Date: 02/21/24 09:00 Actual Procedures p Laparoscopic Cholecystectomy(Not Applicable) - Jt Cardona DO, FACS Ordered Studies 02/20/24 23:30 US gallbladder Stat Hospital Course (1) Acute cholecystitis: 33-year-old male with past medical history significant for hypertension comes from the residential because of the right-sided abdominal pain started tonight. Pain is severe in nature. No nausea or vomiting. No diarrhea or constipation. Micturating okay. Denies any fevers. States pain sometimes shoots into the chest. Because of pain sometime feel short of breath. Currently no headache. No runny nose or sore throat. Occasional cough. Micturating okay. Currently resting comfortably and hemodynamically stable. Patient was admitted in 2021 for cholecystitis but at that time he also had COVID and supposed to follow as outpatient but seems did not followed up Acute cholecystitis LFTs seems okay Has been on IV Zosyn Kept n.p.o. n.p.o., IV fluids and symptomatic medications,IV Dilaudid as needed Appreciate surgery input and recommendation Has been tolerating diet and has had bowel movement Ambulating without difficulties Will be discharged home this afternoon Status post laparoscopic cholecystectomy on 02/21/2024 Minimal right upper quadrant pain without any other symptom Clears have been started Has been tolerating regular diet and surgery cleared him for discharge Hypertension Patient states currently taking lisinopril Blood pressure is noted to be very high following surgery Received 20 of lisinopril today Will have his usual medications from tomorrow Monitor PRP-unremarkable Will continue with his lisinopril as before on discharge Obesity Needs counseling DVT prophylaxis SCDs Disposition Medical floor Full code Total Time Total Time Spent Total Time Spent (In Minutes): 35 minutes Discharge Plan Discharge Items Patient Disposition: Home - Self-Care Reason For Visit: ABDOMINAL PAIN, CHOLECYSTITIS Discharge Diagnosis: acute cholecystitis s/p cholecystectomy Condition on Discharge: Good Activity: As commented below Activity Comment: no heavy lifting (>20lbs), strenuous activity for 2 weeks Lifting: No more than 25 pounds Lifting Comment: for 2 weeks Bathing Comment: may shower, do not soak or scrub wound for 2 weeks Exercise/Sports: Gradually increase as tolerated Exercise Comment: no strenuous activity for 2 weeks Non-emergency contact: Primary Care Provider and Surgeon Call non-emergency contact if: your temperature is above 101, your wound has increased redness, your wound has increased drainage and your wound pain has increased Follow-up/Referrals: Zachary PETIT [Primary Care Provider] - Diet: Regular Addtl Attending Provider Instructions: acetaminophen and NSAID as needed for pain Pending Studies at Discharge: Yes Studies:: gall bladder pathology Stand-Alone Forms: [facility], Smoking Cessation Medications and DC Order Prescriptions: Continued lisinopril 20 mg Tablet 20 mg PO DAILY Discharge Orders: Discharge Order (Routine); Ordered 02/22/24 Ordered By: Jose Luis Reno Admission Data Admit Date/Time: 02/21/24 02:25 Attending Provider: Jose Luis Reno Admit Provider: Devon Brandon Primary Care Provider: Zachary PETIT Other Providers: Devon Brandon; Jt Cardona Other Interventions: Discharge Summary Assessment (RN) Last Done: 02/22/24 12:42
== END 2024-02-22 15:53 | disposition home or self-care (01) | DRG 419 ==
LOC: ED 23:06 → 3E 02-21 02:25